=== PATIENT | female | born 1965 | race Two or more races ===

== ENCOUNTER 2023-08-24 08:30 | Outpatient (RCR) | payer OTHER, SELFPAY | END 2023-08-26 23:59 | LOC: NS 08:30 | PROVIDERS: PCP Internal Medicine; Referring Provider Internal Medicine; Visit Provider Internal Medicine | DX: Z71.3 Dietary counseling and surveillance (principal); E66.9 Obesity, unspecified | CPT/HCPCS: 97802; 97803 ==

== ENCOUNTER 2023-09-14 09:59 | Outpatient (RCR) | payer OTHER, SELFPAY | END 2023-09-26 23:59 | LOC: NS 09:59 | PROVIDERS: PCP Internal Medicine; Referring Provider Internal Medicine; Visit Provider Internal Medicine | DX: Z71.3 Dietary counseling and surveillance (principal); E66.9 Obesity, unspecified; Z68.35 Body mass index [BMI] 35.0-35.9, adult | CPT/HCPCS: 97803 ==

== ENCOUNTER → 2023-11-30 | Outpatient (CLI) | payer OTHER, SELFPAY | END | disposition home or self-care (01) | LOC: SL 09:38 | PROVIDERS: PCP Family Medicine; Referring Provider Family Medicine; Visit Provider Family Medicine | DX: R40.0 Somnolence (principal); R06.83 Snoring; G47.33 Obstructive sleep apnea (adult) (pediatric) | CPT/HCPCS: 95806 ==

== ENCOUNTER → 2024-05-19 | Outpatient (CLI) | payer OTHER, SELFPAY | END | disposition home or self-care (01) | PROVIDERS: PCP Family Medicine; Referring Provider Physician Assistant Surgical; Visit Provider Physician Assistant Surgical | DX: R35.0 Frequency of micturition (principal); R30.0 Dysuria | CPT/HCPCS: 87077; 87086; 87088; 87186 ==

== ENCOUNTER 2024-08-16 10:00 | Outpatient (RCR) | payer OTHER, SELFPAY ==
--- NOTE | 2024-07-11 12:31 | HP.PTEVAL_ITS ---
Patient's Visit Information Visit Information Visit Information: JENNIFER BOATENG is a 59 year old F referred to Physical Therapy by Dr. Aguilar Pereira DO with a diagnosis of Stain of muscle fascial R hip/ Pain in R hip. Date of Evaluation: 07/11/24 Physical Therapist: CRISTINA Gold Visit Plan Frequency: 2x /Week Duration: 2 Months Plan: 2X/ week for 8 weeks for stretching of the Subjective Subjective: Feb/Mar she was doing Beach [employer] and she was doing lunges etc and then she started to have pain in her R hip joint and it has progressed to R groin and pain will shoot down to medial knee. If she rubs the inside of her thigh it is better. She can now R side sleep but could not before. When standing she has to get her bearings. If she sits too long and goes to stand up she will have to get her balance. She has pain in the medial thigh with fast walking or if she goes FW with her R foot first she will have pain. Steps: She has to get her bearings and then she can go up the steps. She went to Dr Pereira. She is on Meloxicam and it does help her sleep and he said it was a tendinosis. She has not done a lot of stretching and stopped exercises. Pain R hip adductor pain: Pain Intensity (Out of 10): 1 Objective Objective: Gait: Walks with decrease stride length R hip flex 18.8 and L 19.2 R knee ext 26.1 and L 26.7 R knee flex 19 and L 19.7 R hip abd 11.4 and L 15.1 R hip ext 15.9 and L 18.8 heel and toe raise X 5 each direction with no issue SLB 30 sec B Tight and painful R hip flexor... able to tolerate R leg off side of table without knee flexion (knee flexion was painful) Pt was tight hip adduction and painful on the R. Tight B piriformis but no pain Bridge full ROM Balance/Special Test Scores Lower Extremity Functional Score: 40 Goals Goal 1:: I HEP Goal Time Frame: 6-8 Weeks Goal 2:: Be able to stretch R Quad/hip flexor and adductor with no pain Goal Time Frame: 6-8 Weeks Goal 3:: Be able to transition from sit to stand without having to wait a second or two before walking due to pain/discomfort Goal Time Frame: 6-8 Weeks Goal 4:: Resume working out without pain Goal Time Frame: 6-8 Weeks Goal 5:: Be able to walk with longer strides without pain Goal Time Frame: 6-8 Weeks Rehabilitation Potential Rehabilitation Potential: Good Anticipated Interventions Patient/Client Instruction: Educate patient on: Condition and Plan of Care For the Purpose of:: To decrease pain, To increase ROM, To improve nutrient delivery to tissue, To improve muscle performance and motor function, To improve ability to perform ADL's, To increase tolerance to activity/condition/position, To improve performance and independence with ADL's, To decrease level of supervision to perform tasks, To improve ability of physical actions for home/community/work/leisure, To improve gait and locomotor functions, To improve health of tissue, To decrease soft tissue restriction, To increase flexibility/ROM and To improve safety with gait Therapeutic Exercise to Include: Strength training, Postural training, Flexibilty training, Gait and locomotor training, Passive ROM, Active ROM and Dynamic Lumbar Stabilization For the Purpose of:: To decrease pain, To increase ROM, To improve nutrient delivery to tissue, To improve muscle performance and motor function, To improve ability to perform ADL's, To increase tolerance to activity/condition/position, To improve performance and independence with ADL's, To decrease level of supervision to perform tasks, To improve ability of physical actions for home/community/work/leisure, To improve gait and locomotor functions, To improve health of tissue, To decrease soft tissue restriction and To increase flexibility/ROM Functional Training to Include: Gait training For the Purpose of:: To improve gait and locomotor functions Manual Therapy Techniques to Include: Passive ROM and Soft tissue mobilization For the Purpose of:: To decrease pain, To increase ROM, To improve nutrient delivery to tissue, To improve muscle performance and motor function, To improve ability to perform ADL's, To increase tolerance to activity/condition/position, To improve performance and independence with ADL's, To decrease level of supervision to perform tasks, To improve ability of physical actions for home/community/work/leisure, To improve gait and locomotor functions, To improve health of tissue, To decrease soft tissue restriction and To increase flexibility/ROM For the Purpose of:: To decrease pain, To increase ROM and To improve nutrient delivery to tissue Text: Thank you for the opportunity to evaluate your patient. For Medicare and Medicare HMO plans, please review the plan of care and approve it. It will need to be FAXED BACK to us at [phone] for Medicare purposes. For Medicare only, by signing this I certify the plan of care. Please let me know if there are questions or concerns regarding this plan of care. Physician Signature: Date:
--- NOTE | 2024-08-16 10:44 | HP.PTREVAL ---
Re-Evaluation Intro: Dr. Aguilar Pereira, DO, It has been my pleasure to treat JENNIFER BOATENG over the last 6 visits for Strain of muscle fascial R hip/ Pain in R hip. Please see the progress note below for an update on the physical therapy plan of care! Subjective Subjective: I am feeling much better now Objective Objective/Function: Pt is now I with HEP Pt is able to transition sit to stand without pain and ambulate immediately with a normal gait pattern Pt only has good pain now with stretching Pt has made significant progress at this time, but has not returned to her normal exercise plan Plan Plan Plan: Recheck or discharge in one month after pt has returned to normal work out routine to assess tolerance and need for further PT. Balance/Gait/Functional tests Balance/Special Test Scores Lower Extremity Functional Score: 57 Goals Goals Goal 1:: I HEP Goal Time Frame: 6-8 Weeks Goal Progress: Goal Met Goal 2:: Be able to stretch R Quad/hip flexor and adductor with no pain Goal Time Frame: 6-8 Weeks Goal Progress: Goal Met Goal 3:: Be able to transition from sit to stand without having to wait a second or two before walking due to pain/discomfort Goal Time Frame: 6-8 Weeks Goal Progress: Goal Met Goal 4:: Resume working out without pain Goal Time Frame: 6-8 Weeks Goal Progress: Progressing Goal 5:: Be able to walk with longer strides without pain Goal Time Frame: 6-8 Weeks Goal Progress: Goal Met Anticipated Interventions Anticipated Interventions Patient/Client Instruction: Educate patient on: Condition and Plan of Care For the Purpose of:: To decrease pain, To increase ROM, To improve nutrient delivery to tissue, To improve muscle performance and motor function, To improve ability to perform ADL's, To increase tolerance to activity/condition/position, To improve performance and independence with ADL's, To decrease level of supervision to perform tasks, To improve ability of physical actions for home/community/work/leisure, To improve gait and locomotor functions, To improve health of tissue, To decrease soft tissue restriction, To increase flexibility/ROM and To improve safety with gait Therapeutic Exercise to Include: Strength training, Postural training, Flexibilty training, Gait and locomotor training, Passive ROM, Active ROM and Dynamic Lumbar Stabilization For the Purpose of:: To decrease pain, To increase ROM, To improve nutrient delivery to tissue, To improve muscle performance and motor function, To improve ability to perform ADL's, To increase tolerance to activity/condition/position, To improve performance and independence with ADL's, To decrease level of supervision to perform tasks, To improve ability of physical actions for home/community/work/leisure, To improve gait and locomotor functions, To improve health of tissue, To decrease soft tissue restriction and To increase flexibility/ROM Functional Training to Include: Gait training For the Purpose of:: To improve gait and locomotor functions Manual Therapy Techniques to Include: Passive ROM and Soft tissue mobilization For the Purpose of:: To decrease pain, To increase ROM, To improve nutrient delivery to tissue, To improve muscle performance and motor function, To improve ability to perform ADL's, To increase tolerance to activity/condition/position, To improve performance and independence with ADL's, To decrease level of supervision to perform tasks, To improve ability of physical actions for home/community/work/leisure, To improve gait and locomotor functions, To improve health of tissue, To decrease soft tissue restriction and To increase flexibility/ROM For the Purpose of:: To decrease pain, To increase ROM and To improve nutrient delivery to tissue Re-Evaluation Ending Re-evaluation ending: Please do not hesitate to contact me at [phone] by phone or if you have questions or concerns regarding this new plan of care! Sincerely, Valentino Flores, PT, ATC
--- NOTE | 2024-12-18 08:45 | HP.PTDCSUM ---
Discharge Summary D/C summary: It has been my pleasure to treat JENNIFER BOATENG referred by Dr. Aguilar Pereira DO, with the diagnosis of Strain of muscle fascial R hip/ Pain in R hip for a total of 6 visit(s). Discharge Date: 12/18/24 Please see the following information for a summary of their discharge status. Subjective Subjective: I am feeling much better now Pain R hip adductor pain: Pain Intensity (Out of 10): 1 Overall Improvement % Improvement: 75 Objective Objective/Function: Pt is now I with HEP Pt is able to transition sit to stand without pain and ambulate immediately with a normal gait pattern Pt only has good pain now with stretching Pt has made significant progress at this time, but has not returned to her normal exercise plan Goals Goal 1:: I HEP Goal Progress: Goal Met Goal 2:: Be able to stretch R Quad/hip flexor and adductor with no pain Goal Progress: Goal Met Goal 3:: Be able to transition from sit to stand without having to wait a second or two before walking due to pain/discomfort Goal Progress: Goal Met Goal 4:: Resume working out without pain Goal Progress: Progressing Goal 5:: Be able to walk with longer strides without pain Goal Progress: Goal Met Plan Plan: Recheck or discharge in one month after pt has returned to normal work out routine to assess tolerance and need for further PT. D/C Information Discharge Comments: DC PT d/c sentence: If there are questions or concerns regarding this patient's physical therapy, please feel free to call me at [phone]. Thank you for the referral of this patient. Sincerely, aSrah Abdullahi, MPT Balance/Gait/Functional tests Balance/Special Test Scores Lower Extremity Functional Score: 57 Improvement % Improvement: 75
--- NOTE | 2024-12-18 08:45 | HP.PTDCSUM ---
Discharge Summary D/C summary: It has been my pleasure to treat JENNIFER BOATENG referred by Dr. Aguilar Pereira DO, with the diagnosis of Strain of muscle fascial R hip/ Pain in R hip for a total of 6 visit(s). Discharge Date: 12/18/24 Please see the following information for a summary of their discharge status. Subjective Subjective: I am feeling much better now Pain R hip adductor pain: Pain Intensity (Out of 10): 1 Overall Improvement % Improvement: 75 Objective Objective/Function: Pt is now I with HEP Pt is able to transition sit to stand without pain and ambulate immediately with a normal gait pattern Pt only has good pain now with stretching Pt has made significant progress at this time, but has not returned to her normal exercise plan Goals Goal 1:: I HEP Goal Progress: Goal Met Goal 2:: Be able to stretch R Quad/hip flexor and adductor with no pain Goal Progress: Goal Met Goal 3:: Be able to transition from sit to stand without having to wait a second or two before walking due to pain/discomfort Goal Progress: Goal Met Goal 4:: Resume working out without pain Goal Progress: Progressing Goal 5:: Be able to walk with longer strides without pain Goal Progress: Goal Met Plan Plan: Recheck or discharge in one month after pt has returned to normal work out routine to assess tolerance and need for further PT. D/C Information Discharge Comments: DC PT d/c sentence: If there are questions or concerns regarding this patient's physical therapy, please feel free to call me at [phone]. Thank you for the referral of this patient. Sincerely, Sarah Abdullahi, MPT Balance/Gait/Functional tests Balance/Special Test Scores Lower Extremity Functional Score: 57 Improvement % Improvement: 75
== END 2024-08-16 19:00 | disposition home or self-care (01) ==
LOC: PT 10:00
PROVIDERS: PCP Family Medicine; Referring Provider Student in an Organized Health Care Education/Training Program; Visit Provider Student in an Organized Health Care Education/Training Program
DX: S76.011D Strain of muscle, fascia and tendon of right hip, subsequent encounter (principal); M25.551 Pain in right hip
CPT/HCPCS: 97110; 97140; 97161; 97530

== ENCOUNTER → 2024-09-13 | Outpatient (CLI) | payer OTHER, SELFPAY ==
[2024-09-17 09:08] LABS: HPV APTIMA, High Risk Negative (Negative)
== END | disposition home or self-care (01) ==
LOC: LABSPEC 16:34
PROVIDERS: PCP Family Medicine; Referring Provider Nurse Practitioner Family; Visit Provider Nurse Practitioner Family
DX: Z12.4 Encounter for screening for malignant neoplasm of cervix (principal)
CPT/HCPCS: 87624; 88175; G0145

== ENCOUNTER → 2024-09-14 | Outpatient (CLI) | payer OTHER, SELFPAY ==
[2024-09-14 14:12] LABS: Absolute Lymphocyte Count 3.03 X10^3/uL (0.83-4.51); Absolute Neutrophil Count 4.8 X10^3/uL (2.0-7.7); Basophil# 0.06 X10^3/uL; Basophil% 0.7 % (0-1); Eosinophil# 0.24 X10^3/uL; Eosinophils% 2.8 % (0-5); Hematocrit 42.6 % (37-47); Hemoglobin 14.9 g/dL (12.0-15.0); Lymphocyte # 3.03 X10^3/ul (0.83-4.51); Lymphocyte % 34.8 % (19-41); Mean Corpuscular Hgb 29.2 pg (27.0-32.0); Mean Corpuscular Volume 83.5 fL (81-99); Mean Platelet Vol. 10.8 fl (6.2-12.0); Monocyte# 0.58 X10^3/uL; Monocyte% 6.7 % (0-10); NRBC Flagged by Analyzer 0 % (0-5); Neutrophil # 4.77 X10^3/uL (2.7-7.7); Neutrophil % 54.8 % (47-70); Platelet Count 392 K/mm3 (150-450); RBC Distribution Width CV 12.8 % (11.6-14.6); RBC Distribution Width SD 39.2 fl (35.1-43.9); White Blood Count 8.7 K/mm3 (4.4-11.0)
[2024-09-14 21:19] LABS: ALB/GLOB Ratio 1.7 RATIO (0.9-2.4); AST(SGOT) 27 U/L (<=31); Alanine Aminotransfer ALT/SGPT 32 U/L (<=34); Albumin, Serum 4.7 g/dL (3.5-5.0); Alkaline Phosphatase 58 U/L (35-104); Anion Gap 14 (5-15); BUN 15 mg/dL (4-19); BUN/Creat Ratio 16.7 RATIO (10-20); Calcium,Total 9.9 mg/dL (7.6-11.0); Carbon Dioxide 24.1 mmol/L (21.0-32.0); Chloride 99 mmol/L (98-108); Cholesterol 199 mg/dL (<=200); Creatinine, Serum 0.87 mg/dL (0.70-1.20); EST Glomerular Filtration Rate 77 (>60); Estradiol 46.4 pg/mL; Follicle Stimulating Hormone 44.8 mIU/mL; Free T3 2.8 pg/mL (2.18-3.98); Globulin 2.8 g/dL (2.2-4.2); Glucose 90 mg/dL (70-99); High Density Lipoprotein 58 mg/dL; Low Density Lipoprotein Calc. 109 mg/dL; Potassium 3.5 mmol/L (3.3-5.1); Protein, Total 7.5 g/dL (5.9-8.4); Sodium Level 137 mmol/L (133-145); Total Bilirubin 0.44 mg/dL (0.00-1.30); Triglycerides 163 mg/dL; Very Low Density Lipoprotein 33 mg/dL (5-40); Vitamin B12 725 pg/mL (180-914); Vitamin D,25 Hydroxy 28.8 ng/mL (30-100); cholesterol:hdl ratio screen 3.45
== END | disposition home or self-care (01) ==
LOC: LAB 13:03
PROVIDERS: PCP Family Medicine; Referring Provider Nurse Practitioner Family; Visit Provider Nurse Practitioner Family
DX: R53.83 Other fatigue (principal); E04.1 Nontoxic single thyroid nodule; Z13.220 Encounter for screening for lipoid disorders; Z13.29 Encounter for screening for other suspected endocrine disorder
CPT/HCPCS: 36415; 80053; 80061; 82306; 82533; 82607; 82670; 83001; 84439; 84443; 84481; 85025

== ENCOUNTER → 2024-09-21 | Outpatient (CLI) | payer OTHER, SELFPAY ==
--- NOTE | 2024-09-21 14:02 | US_ITS ---
PROCEDURE: BREAST LIMITED UNILATERAL 09/21/2024 REASON FOR EXAM: RIGHT BREAST LUMP TECHNIQUE: Targeted right breast ultrasound. COMPARISON: Mammogram 09/21/2024 FINDINGS: Right breast ultrasound was targeted to the upper-outer and right axilla. There is an irregular hypoechoic mass in the right breast at 10 o'clock 9 cm from the nipple measuring 0.7 x 0.6 x 0.6 cm. This correlates with the mammographic finding. Also, there are 2 architecturally normal-appearing right axillary lymph nodes. US/Breast Limited Unilateral IMPRESSION: Irregular right breast mass at 10 o'clock 9 cm from the nipple is suspicious. Recommend tissue sampling with ultrasound-guided core needle biopsy for further evaluation. BI-RADS 5: HIGHLY SUGGESTIVE OF MALIGNANCY. Follow-up code: Immediate Follow-up Recommended with ultrasound-guided biopsy Reading Location: [id number]
--- NOTE | 2024-09-21 14:30 | BI_ITS ---
EXAM: DIAG MAMM W/CAD, BILAT 09/21/2024 RIGHT BREAST SONOGRAM. CLINICAL HISTORY: F, Age 59 y/o , BREAST LUMP TECHNIQUE: Bilateral Diagnostic digital breast tomosynthesis with 2D and 3D images. Computer aided detection. COMPARISON: Prior exam(s): Screening mammograms dated January 27, 2022. FINDINGS: TISSUE DENSITY: B: Scattered areas of fibroglandular density. Bilateral Breast Mammographic Findings: There is a new spiculated soft tissue mass lesion at mid depth in the right breast. Its shape is highly irregular and the lesion is sound attenuating. This measures about 5.6 cm x 5.7 cm by 7.3 cm. The lesion is about as wide as it is tall and is hypovascular. This is located about 9 cm from the nipple line. The left breast is unremarkable. BI/DIAG MAMM W/CAD, BILAT IMPRESSION: Right Breast: BIRADS 5, highly suggestive of malignancy.. Left Breast: BIRADS 1 NEGATIVE. OVERALL FINAL ASSESSMENT: BI-RADS 5. RECOMMENDATION: Surgical consultation. A letter with findings and recommendations will be mailed to the patient. Reading Location: [place] [address]
== END | disposition home or self-care (01) ==
LOC: OPBI 13:59
PROVIDERS: PCP Family Medicine; Referring Provider Nurse Practitioner Family; Visit Provider Nurse Practitioner Family
DX: N63.11 Unspecified lump in the right breast, upper outer quadrant (principal)
CPT/HCPCS: 76642; 77062; 77066; G0279

== ENCOUNTER → 2024-09-22 | Outpatient (CLI) | payer OTHER, SELFPAY ==
--- NOTE | 2024-09-22 08:42 | US_ITS ---
PROCEDURE: THYROID 09/22/2024 REASON FOR EXAM: History of thyroid nodules. TECHNIQUE: Thyroid ultrasound COMPARISON: None FINDINGS: Right thyroid lobe measures 4.8 cm x 1.5 cm x 1.6 cm. Left thyroid lobe measures 5 cm x 2 cm x 2.1 cm. Isthmus thickness is2.2 mm. Thyroid Size: Mild enlargement of both lobes of the thyroid slightly worse on the left side. Background Echotexture: Normal Thyroid Nodules: 5 mm x 5 mm x 6 mm hypoechoic solid nodule in the midportion of the right lobe of the thyroid. Dominant 2.4 cm x 1.6 cm x 1.8 cm complex nodule in the midportion of the left lobe of the thyroid with increased vascularity. Biopsy recommended. There is also evidence of a 9 mm x 12 mm x 8 mm hypoechoic nodule in the left lobe. Other: Incidental note is made of 2 benign-appearing right cervical lymph nodes. US/Thyroid IMPRESSION: Mild enlargement of the thyroid gland worse on the left side. Dominant complex nodule in the left lobe of the thyroid as described with incre ased vascularity. Biopsy recommended. Benign-appearing right cervical lymph nodes. Reading Location: [place] [address]
== END | disposition home or self-care (01) ==
LOC: OPUS 11:52
PROVIDERS: PCP Family Medicine; Referring Provider Nurse Practitioner Family; Visit Provider Nurse Practitioner Family
DX: E04.1 Nontoxic single thyroid nodule (principal)
CPT/HCPCS: 76536

== ENCOUNTER → 2024-09-25 | Outpatient (CLI) | payer OTHER, SELFPAY ==
--- NOTE | 2024-09-25 15:00 | BRBX_PTH ---
PATIENT: JENNIFER BOATENG LOC: [facility] U#:[id number] AGE/SX: 59/F ROOM: RE09/25/[address]: Dr. Siobhan Landrum MD : 1965 BED: DIS: 09/25/2024 SPEC #: [id number] RECD: 09/26/24 10:07 STATUS: HARPAL CHIKIS #: [id number] LEVI: 09/25/24 15:[address]: Siobhan Landrum DEPT: SURGICAL PATHOLOGY RECD BY: Paul Bunn ENTERED: 09/26/24 10:08 SP TYPE: BREAST BX OTHR DR: Dr. Estrella Peters MD Tissues: A - Right breast, NOS Procedures: Immunohistochemical Stains Surgery Specimen Level IV IHC Stain ADDITIONAL HEADER OPERATION: Right breast mass biopsy PRE-OP DIAGNOSIS: Right breast mass, BIRADS 5 TISSUE SUBMITTED: A- Right breast mass Ischemic Time: <1 minute Fixation Time: 28 hours MICROSCOPIC DIAGNOSIS A. Right Breast, mass, core biopsy: * Invasive mammary carcinoma, at least 0.7 cm * Further evaluation with IHCs is pending and will be reported in an addendum. MICROSCOPIC DESCRIPTION Slides are reviewed. These tests were developed and their performance characteristics determined by [facility]. They may not have been cleared or approved by the U.S. Food and Drug Administration. The FDA has determined that such clearance or approval is not necessary. The above immunohistochemical/dualISH markers are ordered and reviewed by the Pathologist. GROSS DESCRIPTION A. Received in formalin in a container labeled with the patient's name, date of , and R breast mass are 2 white-yellow, cylindrical core biopsies of soft tissue measuring 1.0 x 0.2 cm and 1.2 x 0.2 cm. Submitted in toto in A1. Time of collection: 09-25-2024@1500. Cold ischemic time: Less than 1 minute. Total formalin fixation time: Between 6 and 72 hours. 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 This addendum is added to incorporate an outside pathology consultation report. The case was examined at [facility] ([id number]) and the following diagnosis was rendered. A. Right breast, mass, core biopsy: HER2 SCORE: NEGATIVE HER2 SCORING REPORT: HER2 SCORE: NEGATIVE HER2/CEP17 RATIO: 1.0 HER2 COPY NUMBER/CELL: 2.7 Please see complete above mentioned consultation report in EMR
== END | disposition home or self-care (01) ==
LOC: LABSPEC 16:09
PROVIDERS: PCP Family Medicine; Referring Provider Surgery; Visit Provider Surgery
DX: N63.10 Unspecified lump in the right breast, unspecified quadrant (principal)
CPT/HCPCS: 88305; 88341; 88342

== ENCOUNTER → 2024-09-28 | Outpatient (CLI) | payer OTHER, SELFPAY ==
--- NOTE | 2024-09-28 09:12 | MRI_ITS ---
PROCEDURE: BREAST BILATERAL W/O AND W 09/28/2024 REASON FOR EXAM: ABNORMAL MAMMOGRAM TECHNIQUE: Bilateral breast MRI using a dedicated bilateral breast coil before and following intravenous contrast. Images reviewed with subtraction and DynaCAD. CONTRAST: IV FINDINGS: Amount of Fibroglandular Tissue: B: Scattered areas of fibroglandular density Background Parenchymal Enhancement: B RIGHT Breast: Suspicious small 5 mm mass showing enhancement. Location is proximally 10 o'clock, 9 cm from the nipple. LEFT Breast: No suspicious mass or non-mass enhancement. Other Findings: Four lymph nodes identified in the right axilla. These are normal size and demonstrate normal thin rim of enhancement. No suspicious axillary or internal mammary lymph nodes. Visualized portions of the thoracic and abdominal viscera are unremarkable. MRI/Breast Bilateral W/O and W IMPRESSION: Suspicious small mass thought position right breast. OVERALL BI-RADS CATEGORY: 5 Follow-up code: Immediate follow-up recommendation with ultrasound-guided biops y Reading Location: [facility]
--- NOTE | 2024-09-28 16:13 | US_ITS ---
PROCEDURE: PELVIC W/ TRANSVAGINAL REASON FOR EXAM: POST MENOPAUSAL BLEEDING TECHNIQUE: Transabdominal and transvaginal pelvic ultrasound COMPARISON: None FINDINGS: Measurements: Uterus: 9.4 cm x 5.4 cm x 4.3 cm with a volume of 112.8 mL Endometrial Thickness: 6 mm. It is hyperechoic. Thickened. Nabothian cyst is seen in the cervix. Right Ovary: 2.4 cm x 1.5 cm x 1.3 cm. Left Ovary: Not visualized. TRANSABDOMINAL: Uterus: Findings suggestive of possible adenomyosis. Endometrium: Endometrial thickening. Right ovary: Normal size and echotexture. Left ovary: Not visualized. Transvaginal sonography was performed to better visualize the endometrium. TRANSVAGINAL: Uterus: Possible adenomyosis. Endometrium: Endometrium measures 6 mm. This is thickened. Right ovary: Normal size and echotexture. Left ovary: Not visualized. Other adnexal findings: None. Cul-de-sac: No free intraperitoneal fluid identified. Tenderness: US/Pelvic w/ Transvaginal IMPRESSION: Endometrial thickening. Findings suggestive of possible adenomyosis of the uterus. Reading Location: [place] [address]
== END | disposition home or self-care (01) ==
LOC: MRI 09:09
PROVIDERS: PCP Family Medicine; Referring Provider Surgery; Visit Provider Surgery
DX: N95.0 Postmenopausal bleeding (principal)
CPT/HCPCS: 76830; 76856; 77049; A9575; A4216; C8908

== ENCOUNTER 2024-09-29 05:36 | Day surgery (SDC) | payer OTHER, SELFPAY ==
[2024-09-29] VITALS (8 sets, daily range): BP systolic 102–125; BP diastolic 67–80; PULSE 63–77; RESP 16–18; TEMP 36.1–36.4; O2SAT 93–98; BMI 34.4
--- NOTE | 2024-09-29 06:18 | PCM.PRE.AN2 ---
ASA Classification* ASA Classification ASA Classification: 2 Assessment & Plan Anesthesia* Anesthesia Assessment Anesthesia Assessment: Discussed sedation and/or anesthesia options, risks, benefits, and alternatives with patient/parents/legal guardian/POA. Questions invited. The patient/parents/legal guardian/POA seems to understand and agrees to proceed with anesthesia plan. Reviewed the physical assessment, medical history, allergy history and patient home medications list prior to surgery/procedure/anesthetic and documented any changes. Performed airway and anesthesia risk assessments. Anesthesia Type Anesthesia Type: MAC History Source History Obtained from:: Patient and Chart Anesthesia Focused Assessment* Temperature: 97.0 F Pulse Rate: 63 Blood Pressure: 125/80 Respiratory Rate: 18 Pulse Ox: 98 Oxygen Delivery Method: Room Air Airway Assessment Mouth opens: >3 cm Mallampati Score: IV Teeth Condition: Caps/Crowns (Patient has a crown right upper molar. It is tight.) Neck Range of motion (ROM): Full ROM Focused Labs Anesthesia Preop lab: CBC WBC 8.7 K/mm3 (4.4-11.0) 09/14/24 13:09/14/24 RBC 5.10 M/mm3 (4.2-5.4) 09/14/24 13:09/14/24 Hgb 14.9 g/dL (12.0-15.0) 09/14/24 13:09/14/24 Hct 42.6 % (37-47) 09/14/24 13:09/14/24 Plt Count 392 K/mm3 (150-450) 09/14/24 13:09/14/24 CHEMISTRY Potassium 3.5 mmol/L (3.3-5.1) 09/14/24 13:09/14/24 Sodium 137 mmol/L (133-145) 09/14/24 13:09/14/24 BUN 15 mg/dL (4-19) 09/14/24 13:09/14/24 Creatinine 0.87 mg/dL (0.70-1.20) 09/14/24 13:09/14/24 Glucose 90 mg/dL (70-99) 09/14/24 13:09/14/24 TSH 1.270 uIU/mL (0.300-4.200) 09/14/24 13:27 09/14/24 COAG Pre-Assessment Diagnosis/Proposed Procedure Planned Operative Procedure(s): EGD Anesthesia History 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 When Was Last Pacemaker Check QUESTION #4 FULL TEXT: You/Your Family Experience fever (hyperthermia) with Anesthesia Last Oral Intake Last Oral intake: Last Oral Intake NPO since 17:30 09/29/24 05:54 Meds taken in AM with sips of water? Meds patient instructed to take am of surgery PONV PONV - business applications analyst: PONV - business applications analyst Female Yes 09/26/24 09:39 HX of Motion Sickness Yes 09/26/24 09:39 HX of N/V After Surgery Yes 09/26/24 09:39 Non-Smoker Yes 09/26/24 09:39 Duration of Surgery greater No 09/26/24 09:39 than 60 minutes Number of Risk Factors 4 09/26/24 09:39 PONV Score Severe Risk 09/26/24 09:39 Height & Weight Height & Weight: Anesthesia: Height & Weight Height 5 ft 09/29/24 05:54 Weight: 80 kg 09/29/24 05:54 Body Mass Index (BMI) 34.4 09/29/24 05:54 Respiratory Assessment Respiratory Assessment - business applications analyst: Respiratory Tract Infection Hx - business applications analyst Hx Respiratory Tract Infection No 09/26/24 09:39 STOP Sleep Apnea STOP Sleep Apnea - business applications analyst: STOP Sleep Apnea - business applications analyst Hx Hypertension Yes: CONTROLLED WITH MED 09/26/24 09:39 Hx Sleep Apnea No 09/26/24 09:39 CPAP BIPAP Do you snore loudly (louder No 09/26/24 09:39 than talking or can be heard Do you often feel tired/ No 09/26/24 09:39 fatigued/ sleepy during daytime? Has anyone observed you stop No 09/26/24 09:39 breathing during sleep? STOP Results Negative 09/26/24 09:39 QUESTION #5 FULL TEXT : Do you snore loudly (louder than talking or can be heard through closed doors)? Tobacco Use History Tobacco Use History - business applications analyst: Tobacco Use History - business applications analyst Tobacco Use Smoking Status Former smoker 09/26/24 09:39 Hx Tobacco Use No 09/26/24 09:39 Years Smoking Packs Smoked per Day Smoking Cessation Date was Yes - quit smoking within 15 09/26/24 09:39 within the last 15 years years Hx Smoking Cessation Date Hx Smoking Cessation No 09/26/24 09:39 Counseling Hematologic Medial History Hematologic Hx - business applications analyst: Hematologic Medical Hx - clinical documentation spec Hx of Blood Transfusion No 09/26/24 09:39 Hx of Transfusion in last 3 No 09/26/24 09:39 Months Date of Last Transfusion (if within last 3 months) Ever experience any problems No 09/26/24 09:39 with transfusion(s)? Specify any problems Hx of Preganancy in last 3 No 09/26/24 09:39 Months Nurse Filling Out Transfusion DSCHRIBER 09/26/24 09:39 & Questions: Date: 09/26/24 09/26/24 09:39 Time: 09:42 09/26/24 09:39 Patient unable to answer at this time (ie. confused, unrespo /Reproduction History /Reproductive History - business applications analyst: /Reproductive Hx- business applications analyst Hx Now No 09/26/24 09:39 Gestational Age (in weeks): EDC: Hx Hx Para Hx Section SAB No 09/26/24 09:39 PFSH Medical History Post-menopausal Thyroid disease Cancer Alcohol use Arthritis Frequent headaches Shortness of breath on exertion Former smoker Abnormal mammogram Esophageal abrasion Stomach ulcer Polycystic ovaries Hormone deficiency Marks esophagus HTN (hypertension) Home Medications ?Medication ?Instructions ?Recorded ?Last Taken ?Type lactobacillus combination no.9 4 4,000 mmu cells PO QDAY 05/19/24 09/28/24 History billion cell capsule (Adult 50 Plus Probiotic) multivitamin 1 tab PO QAM 07/27/24 09/28/24 History hydrochlorothiazide 25 mg tablet 25 mg PO QDAY 09/25/24 09/28/24 History pantoprazole 40 mg tablet,delayed 40 mg PO DAILY 09/26/24 09/28/24 History release Allergy/AdvReac Type Severity Reaction Status Date / Time codeine Allergy Mild Other Verified 09/29/24 05:53 Sulfa (Sulfonamide Allergy Mild Nausea/Vom/ Verified 09/29/24 05:53 Antibiotics) Diarrhea latex AdvReac Mild Itching Verified 09/29/24 05:53 Family History Grandmother Arthritis Parkinsons disease CVA (cerebral vascular accident) Mother Hypertension Grandfather Parkinsons disease Surgical History Hx of LASIK Hx of colonoscopy History of esophagogastroduodenoscopy (EGD) S/P section S/P appendectomy History of repair of hiatal hernia Social History household members: spouse housing: house current occupational status: employed 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
--- NOTE | 2024-09-29 06:30 | EGD_PTH ---
PATIENT: JENNIFER BOATENG LOC: EN U#:[id number] AGE/SX: 59/F ROOM: RE09/29/[address]: Dr. Natanael Quiros DO : 1965 BED: DIS: 09/29/2024 SPEC #: [id number] RECD: 09/29/24 12:59 STATUS: HARPAL RENorma #: [id number] LEVI: 09/29/24 06:[address]: Natanael Quiros DEPT: SURGICAL PATHOLOGY RECD BY: Paul Bunn ENTERED: 09/29/24 13:00 SP TYPE: EGD BIOPSY SHAREE DR: Dr. Estrella Peters MD Tissues: A - Esophagus, NOS Procedures: Surgery Specimen Level IV HEADER OPERATION: EGD biopsy PRE-OP DIAGNOSIS: Bowser esophagus TISSUE SUBMITTED: A- Distal esophagus biopsy MICROSCOPIC DIAGNOSIS A. Distal esophagus, Bowser, biopsy: - Bowser mucosa negative for dysplasia. MICROSCOPIC DESCRIPTION Slides are reviewed. GROSS DESCRIPTION A. Received in formalin in a container labeled with the patient's name, date of , and distal esophagus biopsy are multiple maldonado-pink fragments of mucosal tissue measuring 1.5 x 0.7 x 0.3 cm in aggregate. Submitted in toto in A1. [facility] 09-29-2024 CPT:29910 ADDENDUM ADDENDUM ADDENDUM ADDENDUM ADDENDUM ADDENDUM ADDENDUM ADDENDUM ADDENDUM ADDENDUM 12/04/2024 08:50 ADDENDUM 12/04/2024 08:50 ADDENDUM 12/04/2024 08:50 ADDENDUM 12/04/2024 08:50 ADDENDUM 12/04/2024 08:50 Zane Prep [facility] - BOWSER'S ESOPHAGUS REPORT RISK CLASS: LOW RISK SCORE: 4.2 5-YEAR PROBABILITY OF PROGRESSION: 3% Please see complete report in e-chart or EMR
--- NOTE | 2024-09-29 06:48 | HP.PCM_ITS ---
HPI - General General Date of Admission: 09/29/24 Date of Service: 09/29/24 Chief Complaint: lassiter's esophagus HPI Narrative JENNIFER BOATENG, is a 59 F who presents with the Chief Complaint: Lassiter's, GERD ---[employer]SPORTATION [employer]PARTMENT [employer] [facility] COLON 2018 ([place]) negative exam - repeat 10 years EGD 03/20/2022 A. DUODENUM, BIOPSY: --SMALL BOWEL MUCOSA, NO SIGNIFICANT PATHOLOGIC FINDINGS B. ANTRUM, BIOPSY: -- MILD CHRONIC GASTRITIS Note: Immunostain for Helicobacter pylori is negative. C. DISTAL ESOPHAGUS, BIOPSY: -- SQUAMOCOLUMNAR JUNCTIONAL MUCOSA WITH INTESTINAL METAPLASIA, CONSISTENT WITH LASSITER'S ESOPHAGUS -- NEGATIVE FOR DYSPLASIA - Normal nasopharynx. - Esophageal mucosal changes secondary to established short-segment Lassiter's disease, classified as Lassiter's stage C1-M2 per [place] criteria. Biopsied. - Erythematous mucosa in the prepyloric region of the stomach. Biopsied. - Normal examined duodenum. Biopsied. EGD 10/21/2016 GE JUNCTION, BIOPSY - SQUAMOCOLUMNAR MUCOSA WITH FOCAL INTESTINAL METAPLASIA COMPATIBLE WITH LASSITER ESOPHAGUS. NEGATIVE FOR DYSPLASIA AND MALIGNANCY (SEE NOTE). NOTE: An Alcian blue/PAS stain highlights intestinal metaplasia. EGD 04/15/2016 The GE junction was inspected with narrow band imaging, no visual evidence of Lassiter's was seen. Focal biopsies were done at the GE junction and multilevel and sent as specimen to make sure that there was no microscopic Lassiter's esophagus. GASTROESOPHAGEAL JUNCTION, BIOPSIES - SPECIALIZED INTESTINAL METAPLASIA WITH GOBLET CELLS AND ACID MUCIN PRODUCTION. NEGATIVE FOR DYSPLASIA OR CARCINOMA. AB/PAS STAIN REVIEWED. MILD CHRONIC ESOPHAGITIS. EGD 11/06/2015 GASTROESOPHAGEAL JUNCTION, BIOPSY - CHRONIC INFLAMMATION WITH SPECIALIZED INTESTINAL (GOBLET CELL) METAPLASIA CONSISTENT WITH LASSITER'S ESOPHAGUS. NEGATIVE FOR DYSPLASIA. ALCIAN BLUE/PAS STAIN CONFIRMS THE PRESENCE OF INTESTINAL METAPLASIA. EGD 05/13/2015 1. Laparoscopic repair of hiatal hernia with mesh. 2. Laparoscopic Cisco fundoplication. 3. Esophagogastroduodenoscopy. EGD 03/06/2015 - APC The previously seen Lassiter's segment was almost completely disappeared except for a very small segment at 3 o'clock position through the endoscope. A TTS device was then introduced and then the segment was ablated with sequential ablations. The resultant quite long was scraped off with the tip of the TTS device and the area was re-ablated. Hemostasis was confirmed. Scope was withdrawn. The patient tolerated the procedure well. EGD 10/26/2014 - APC Scope was withdrawn into the distal esophagus and narrow band imaging was used to identify a segment of Lassiter's esophagus at about 4 o'clock and also 7 o'clock. Please see pictures. These both segments were then ablated with TTS device with sequential ablations through the TTS paddle introduced through the endoscope. The coagulum was then scraped off with the tip of the scope and the areas were re-ablated. EGD 08/27/2014 Scope was then withdrawn at the GE junction, which looked like Lassiter's esophagus. Please see pictures, this was looked at by narrow band imaging as well. Biopsies were done to prove microscopic Lassiter's esophagus. EGD 08/22/2014 BIOPSY OF GASTROESOPHAGEAL JUNCTION - SPECIALIZED INTESTINAL METAPLASIA CONSISTENT WITH LASSITER'S ESOPHAGUS. BACKGROUND OF CHRONICALLY INFLAMED SQUAMOUS AND GASTRIC TYPE MUCOSA. - GERD is getting worse - ran out of Omeprazole and has to take 8 Tums to reduce symptoms after eating spaghetti - reports resuming PPI and symptoms resolved - denies any dysphagia - Lassiter's 2012 - h/o esophageal ablations by Dr. Cervantes at [facility] - last ablation 04/2025 - at least h/o 4 ablations in the past - EGD - HH repair - Maternal Uncle with esoph. CA - denies any family h/o colon CA - denies any change in bowel habits - denies any bleeding - denies any weight loss ON LICENSE OF [facility] Medical History Post-menopausal Thyroid disease Cancer Alcohol use Arthritis Frequent headaches Shortness of breath on exertion Former smoker Abnormal mammogram Esophageal abrasion Stomach ulcer Polycystic ovaries Hormone deficiency Lassiter esophagus HTN (hypertension) Home Medications ?Medication ?Instructions ?Recorded ?Last Taken ?Type lactobacillus combination no.9 4 4,000 mmu cells PO QD AY 05/19/24 09/28/24 History billion cell capsule (Adult 50 Plus Probiotic) multivitamin 1 tab PO QAM 07/27/24 History hydrochlorothiazide 25 mg tablet 25 mg PO QDAY 09/25/ 5 09/28/24 History pantoprazole 40 mg tablet,delayed 40 mg PO DAILY 09/2609/28/24 History release Allergy/AdvReac Type Severity Reaction Status Date / Time codeine Allergy Mild Other Verified 09/29/24 05:53 Sulfa (Sulfonamide Allergy Mild Nausea/Vom/ Verified 09/29/24 05:53 Antibiotics) Diarrhea latex AdvReac Mild Itching Verified 09/29/24 05:53 Family History Grandmother Arthritis Parkinsons disease CVA (cerebral vascular accident) Mother Hypertension Grandfather Parkinsons disease Surgical History Hx of LASIK Hx of colonoscopy History of esophagogastroduodenoscopy (EGD) S/P section S/P appendectomy History of repair of hiatal hernia Social History household members: spouse housing: house current occupational status: employed current occupation: [employer] Smoking Status: Former smoker alcohol intake: current substance use type: does not use additional social history: - Bg RODRÍGUEZ Constitutional Constitutional: Denies fatigue, fever(s), poor appetite, weight gain or weight loss Gastrointestinal Gastrointestinal: Denies belching, bloating, change in bowel habits, change in stool character, chewing difficulty, coffee ground emesis, constipation, cramping, diarrhea, dyspepsia, dysphagia, early satiety, excessive flatus, fecal incontinence, heartburn, hematemesis, hematochezia, hemorrhoids, loose stools, melena, nausea, odynophagia, rectal bleeding, tenesmus, vomiting or weight changes Vital Signs Vital Signs Vital Signs: 09/29/24 05:54 09/29/24 05:54 09/29/24 06:24 Temperature 97.0 F L 97.0 F L Temperature Source Temporal Pulse Rate 63 63 Respiratory Rate 18 18 Respiratory Pattern Normal Blood Pressure 125/80 H 125/80 H Blood Pressure Mean 95 Blood Pressure Source Monitor Blood Pressure Position Semi-Fowlers Blood Pressure Location Left Arm Pulse Ox 98 98 Oxygen Delivery Method Room Air Room Air Weight Weight: 176 lb 5.917 oz Body Mass Index (BMI) 34.4 Physical Exam Const alert, oriented x3, no apparent distress and healthy appearing General Appearance: cooperative GI normal to inspection, nondistended, normoactive bowel sounds, soft to palpation, non-tender and non-distended Percussion: normal to percussion Rectal Exam: deferred Assessment & Plan Assessment/Plan (1) Lassiter esophagus: QUALIFIERS: Lassiter's esophagus type: with dysplasia of unspecified degree Qualified Code(s): K22.719 - Lassiter's esophagus with dysplasia, unspecified PLAN: Assessment and Plan Assessment and Plan (1) Lassiter esophagus: Status: Acute Qualifiers: Lassiter's esophagus type: with dysplasia of unspecified degree Qualified Code(s): K22.719 - Lassiter's esophagus with dysplasia, unspecified Comment: C1M2 - H/O dysplasia - APC 2014 Plan 59y/o female presents for initial consultation with a personal history of Lassiter's with dysplasia. EGD was last performed February 2022 and biopsies were consistent with Lassiter's (C1M2) negative for dysplasia. GERD Symptoms are well controlled on PPI daily. She denies any N/V, dysphagia or weight loss. Family history is significant for maternal Uncle with esophageal CA. I have scheduled her for an EGD, if biopsies are revealing for Lassiter's, will send [employer]Cypher. Patient Instructions: Follow-up in office post procedure
--- NOTE | 2024-09-29 07:08 | POSTOPAN2_ITS ---
Anesthesia Postop Eval I Sum Postop Eval Completion status Anesthesia document: Postop Eval 1 completed: Yes Anesthesia Postop Eval I Summary Anesthesia Postop Eval I Summary: Anesthesia Postop Eval I: Assessment Summary Airway patent Yes 09/29/24 07:08 RN SOCIAL SERVICES.YANET Spontaneous unlabored Yes 09/29/24 07:08 RN SOCIAL SERVICES.YANET respirations Mental status Awake,Calm 09/29/24 07:08 RN SOCIAL SERVICES.YANET nausea No 09/29/24 07:08 RN SOCIAL SERVICES.YANET Vomiting No 09/29/24 07:08 RN SOCIAL SERVICES.YANET Anesthesia Postop Eval I: Fluid Summary Crystalloid volume administer 30 09/29/24 07:08 RN SOCIAL SERVICES.YANET (ml) Colloids volume administered ( ml) Blood Product volume administered (ml) Total IV fluid infused 30 09/29/24 07:08 RN SOCIAL SERVICES.YANET Anesthesia Postop Eval I: Summary Notes Anesthesia Complication No 09/29/24 07:08 RN SOCIAL SERVICES.YANET Anesthesia Complication Comment: Post-operative progress note Anesthesia: Postop Eval II Evaluation Mental status: Awake and Calm Pain Level: 0 nausea: No Vomiting: No Complications Anesthesia Complication: No
--- NOTE | 2024-09-29 07:08 | PCM.POST.ANE ---
Anesthesia: Postop Eval I Current Vital Signs Temperature: 97 F Pulse Rate: 77 Blood Pressure: 102/67 Respiratory Rate: 16 Pulse Ox: 97 Oxygen Delivery Method: Room Air Assessment Airway patent: Yes Spontaneous unlabored respirations: Yes Mental status: Awake and Calm nausea: No Vomiting: No Anesthesia Complication: No Fluid Hydration Crystalloid volume administer (ml): 30 Total IV fluid infused: 30 Progress Note Anesthesia document: Postop Eval 1 completed: Yes
--- NOTE | 2024-09-29 07:08 | PCM.POSTANE2 ---
Anesthesia Postop Eval I Sum Postop Eval Completion status Anesthesia document: Postop Eval 1 completed: Yes Anesthesia Postop Eval I Summary Anesthesia Postop Eval I Summary: Anesthesia Postop Eval I: Assessment Summary Airway patent Yes 09/29/24 07:08 TELEVISION AUDIO ENGINEER.YANET Spontaneous unlabored Yes 09/29/24 07:08 TELEVISION AUDIO ENGINEER.YANET respirations Mental status Awake,Calm 09/29/24 07:08 TELEVISION AUDIO ENGINEER.YANET nausea No 09/29/24 07:08 TELEVISION AUDIO ENGINEER.YANET Vomiting No 09/29/24 07:08 TELEVISION AUDIO ENGINEER.YANET Anesthesia Postop Eval I: Fluid Summary Crystalloid volume administer 30 09/29/24 07:08 TELEVISION AUDIO ENGINEER.YANET (ml) Colloids volume administered ( ml) Blood Product volume administered (ml) Total IV fluid infused 30 09/29/24 07:08 TELEVISION AUDIO ENGINEER.YANET Anesthesia Postop Eval I: Summary Notes Anesthesia Complication No 09/29/24 07:08 TELEVISION AUDIO ENGINEER.YANET Anesthesia Complication Comment: Post-operative progress note Anesthesia: Postop Eval II Evaluation Mental status: Awake and Calm Pain Level: 0 nausea: No Vomiting: No Complications Anesthesia Complication: No
--- NOTE | 2024-09-29 07:20 | OP.CCLET_ITS ---
09/29/2024 Estrella Peters Re : Upper GI endoscopy procedure for Jazmin Alexandre Dear Rylandeishmael This procedure was performed on Sunday, September 29, 2024. My impressions and recommendations are as follows: Impressions : - Esophageal mucosal changes classified as Marks's stage C1-M2 per [place] criteria. Biopsied. - Hiatal hernia. - No gross lesions in the first portion of the duodenum. Recommendations : - Discharge patient to home. - Resume previous diet. - Continue present medications. - Await pathology results. - Repeat upper endoscopy for surveillance. My findings are described in the full procedure note, which is enclosed. If I can be of further assistance, please feel free to contact me at . Sincerely, Natanael Quiros, 09/29/2024 7:19:01 AM This report has been signed electronically.
--- NOTE | 2024-09-29 07:20 | OP.EGD_ITS ---
Patient Name: Jazmin Alexandre Procedure Date: 09/29/2024 6:24 AM Date of : 1965 Age: 59 Procedure: Upper GI endoscopy Indications: Marks's esophagus with low grade dysplasia, Follow-up of previous radiofrequency ablation treatment of Marks's esophagus Providers: Natanael Quiros DO Referring MD: Estrella Peters Medicines: Monitored Anesthesia Care Patient Profile: This is a 59 year old female. Refer to note in patient chart for documentation of history and physical. Patient has symptoms of chronic heartburn. Complications: No immediate complications. Procedure: Pre-Anesthesia Assessment: - Prior to the procedure, a History and Physical was performed, and patient medications and allergies were reviewed. The patient is competent. The risks and benefits of the procedure and the sedation options and risks were discussed with the patient. All questions were answered and informed consent was obtained. Patient identification and proposed procedure were verified by the physician in the pre-procedure area. Mental Status Examination: alert and oriented. Airway Examination: normal oropharyngeal airway and neck mobility. Respiratory Examination: clear to auscultation. CV Examination: normal. Prophylactic Antibiotics: The patient does not require prophylactic antibiotics. Prior Anticoagulants: The patient has taken no anticoagulant or antiplatelet agents except for NSAID medication. ASA Grade Assessment: II - A patient with mild systemic disease. After reviewing the risks and benefits, the patient was deemed in satisfactory condition to undergo the procedure. The anesthesia plan was to use monitored anesthesia care (MAC). Immediately prior to administration of medications, the patient was re-assessed for adequacy to receive sedatives. The heart rate, respiratory rate, oxygen saturations, blood pressure, adequacy of pulmonary ventilation, and response to care were monitored throughout the procedure. The physical status of the patient was re-assessed after the procedure. After obtaining informed consent, the endoscope was passed under direct vision. Throughout the procedure, the patient's blood pressure, pulse, and oxygen saturations were monitored continuously. The Endoscope was introduced through the mouth, and advanced to the second part of duodenum. The upper GI endoscopy was accomplished without difficulty. The patient tolerated the procedure well. Scope In: 6:56:43 AM Scope Out: 7:03:48 AM Total Procedure Duration Time 0 hours 7 minutes 5 seconds Findings: There were esophageal mucosal changes classified as Marks's stage C1-M2 per [place] criteria present in the lower third of the esophagus. The maximum longitudinal extent of these mucosal changes was 2 cm in length. Mucosa was biopsied with a cold forceps for histology in 4 quadrants at intervals of 1 cm in the lower third of the esophagus. One specimen bottle was sent to pathology. Verification of patient identification for the specimen was done. Estimated blood loss was minimal. A hiatal hernia was present. The exam of the stomach was otherwise normal. No gross lesions were noted in the first portion of the duodenum. Impression: - Esophageal mucosal changes classified as Marks's stage C1-M2 per [place] criteria. Biopsied. - Hiatal hernia. - No gross lesions in the first portion of the duodenum. Recommendation: - Discharge patient to home. - Resume previous diet. - Continue present medications. - Await pathology results. - Repeat upper endoscopy for surveillance. Procedure Code(s): --- Professional --- 39134, Esophagogastroduodenoscopy, flexible, transoral; with biopsy, single or multiple CPT copyright 2021 [employer]. All rights reserved. The codes documented in this report are preliminary and upon aerodynamic consultant review may be revised to meet current compliance requirements. Natanael Quiros DO 09/29/2024 7:19:01 AM This report has been signed electronically. Number of Addenda: 0 Note Initiated On: 09/29/2024 6:24 AM
== END 2024-09-29 07:54 | disposition home or self-care (01) ==
LOC: EN 05:36 → AC 05:37
PROVIDERS: PCP Family Medicine; Referring Provider Family Medicine; Visit Provider Internal Medicine Gastroenterology
PROC: 0DJ08ZZ Inspection of Upper Intestinal Tract, Via Natural or Artificial Opening Endoscopic (ICD-10-PCS; CPT 43235; principal; 2024-09-29 06:25)
DX: K22.70 Barrett's esophagus without dysplasia (principal); Z87.891 Personal history of nicotine dependence; I10 Essential (primary) hypertension; K21.00 Gastro-esophageal reflux disease with esophagitis, without bleeding; Z79.899 Other long term (current) drug therapy; Z90.49 Acquired absence of other specified parts of digestive tract; K44.9 Diaphragmatic hernia without obstruction or gangrene
CPT/HCPCS: 43239; 88305; A4216

== ENCOUNTER → 2024-10-03 | Outpatient (CLI) | payer OTHER, SELFPAY ==
--- NOTE | 2024-10-03 09:10 | EMB_PTH ---
PATIENT: JENNIFER BOATENG LOC: ERLINDA U#:[id number] AGE/SX: 59/F ROOM: RE10/03/[address]: OLIVIA Daniel : 1965 BED: DIS: 10/03/2024 SPEC #: [id number] RECD: 10/03/24 13:19 STATUS: HAPRAL CHIKIS #: [id number] LEVI: 10/03/24 09:[address]: Amber Kay NP DEPT: SURGICAL PATHOLOGY RECD BY: Paul Bunn ENTERED: 10/03/24 13:19 SP TYPE: ENDOM BX/C SHAREE DR: Dr. Estrella Peters MD Tissues: A - Endometrium, NOS Procedures: Surgery Specimen Level IV HEADER OPERATION: Endometrial biopsy PRE-OP DIAGNOSIS: Post menopausal bleeding TISSUE SUBMITTED: A- Endometrial lining MICROSCOPIC DIAGNOSIS A. Uterus, endometrial lining, biopsy: * Strips of benign glandular epithelium consistent with endometrial origin - see note. Note: Clinical correlation is necessary to assess the adequacy of the sampling. MICROSCOPIC DESCRIPTION Slides are reviewed. GROSS DESCRIPTION A. Received in formalin in a container labeled with the patient's name, date of , and with the accompanying paperwork indicating, endometrial lining is a scant amount of wispy soft tissue submitted entirely for cell block preparation in A1. [facility] 10-03-2024 CPT:95174
== END | disposition home or self-care (01) ==
LOC: BWCLAB 11:15 → LABSPEC 11:19
PROVIDERS: PCP Family Medicine; Referring Provider Nurse Practitioner Women's Health; Visit Provider Nurse Practitioner Women's Health
DX: N95.0 Postmenopausal bleeding (principal)
CPT/HCPCS: 88305

== ENCOUNTER → 2024-10-13 | Outpatient (CLI) | payer OTHER, SELFPAY ==
--- NOTE | 2024-10-13 08:00 | FLU_PTH ---
PATIENT: JENNIFER BOATENG LOC: ERLINDA U#:[id number] AGE/SX: 59/F ROOM: RE10/13/[address]: Dr. Roni Jones MD : 1965 BED: DIS: 10/13/2024 SPEC #: [id number] RECD: 10/13/24 11:10 STATUS: HARPAL CHIKIS #: [id number] LEVI: 10/13/24 08:[address]: Roni Jones DEPT: CYTOLOGY RECD BY: Paul Bunn ENTERED: 10/13/24 11:10 SP TYPE: Fluid OTHR DR: Dr. Estrella Peters MD Tissues: A - Thyroid gland, NOS Procedures: Special Stain Group II Surgery Specimen Level IV Cytospin Fluid HEADER OPERATION: Fine needle aspiration of left thyroid nodule PRE-OP DIAGNOSIS: Left thyroid nodule TISSUE SUBMITTED: A- Left mid thyroid nodule fluid for cytology DIAGNOSIS CYTOLOGY A. Left mid thyroid nodule, FNA: * No malignant cells are identified * Benign follicular cells (benign follicular nodule) Preliminary studies/adequacy: Few follicular cells and macrophages By Dr. Singleton 10/13/24 CYTOLOGY STUDY Slides are reviewed. CYTOLOGY GROSS A. Received is 330 ml of cytolyt with particles and 4 smears labeled with the patient's name and and designated per the requisition as Left mid thyroid nodule. Submitted for cytology. Mr 10/13/2024 CPT: 88294
== END | disposition home or self-care (01) ==
PROVIDERS: PCP Family Medicine; Referring Provider Surgery; Visit Provider Surgery
DX: E04.1 Nontoxic single thyroid nodule (principal)
CPT/HCPCS: 88108; 88305; 88313

== ENCOUNTER 2024-10-20 06:31 | Day surgery (SDC) | payer OTHER, SELFPAY ==
[2024-10-20] VITALS (11 sets, daily range): BP systolic 126–146; BP diastolic 75–94; PULSE 74–79; RESP 14–18; TEMP 36.1–37.2; O2SAT 91–95; BMI 34.9
--- NOTE | 2024-10-20 06:58 | PCM.HP.BLA ---
History and Physical Date of Admission: 10/20/24 Date of Service: 10/02/24 MR#: [id number] Acct: [id number] Name: JENNIFER BOATENG Rep #: [id number] : 1965 Provider: Dr. Siobhan Landrum MD Age/Sex: 59/F Location: [facility] Status: Signed Intake Vital Signs 09/25/2513:46 10/02/2508:03 Height 5 ft 5 ft BP 147/88 H Blood Pressure Location Rt brachial Position Sitting Respiration 17 Pulse 86 Pulse Source Monitor Pulse Oximetry (%) 97 Oxygen Delivery Method room air Intake Visit Reasons: DISCUSS BREAST SURGERY Chief Complaint: discuss breast surgery Is patient in pain?: No Allergies codeine Allergy (Mild, Verified 10/03/24 08:42) OtherSulfa (Sulfonamide Antibiotics) Allergy (Mild, Verified 10/03/24 08:42) Nausea/Vom/Diarrhealatex Adverse Reaction (Mild, Verified 10/03/24 08:42) Itching Medications ?Medication ?Instructions ?Recorded ?Confirmed ?Type lactobacillus combination no.9 4 4,000 mmu cells PO QDAY 05/19/24 10/03/24 History billion cell capsule (Adult 50 Plus Probiotic) multivitamin 1 tab PO QAM 07/27/24 10/03/24 History hydrochlorothiazide 25 mg tablet 25 mg PO QDAY 09/25/24 10/03/24 History pantoprazole 40 mg tablet,delayed 40 mg PO DAILY 09/26/24 10/03/24 History release omeprazole 20 mg capsule,delayed 20 mg PO QDAY 10/03/24 10/03/24 History release PFSH Medical History (Updated 10/03/24 @ 08:[address] Siobhan Landrum MD) Breast cancer Post-menopausal Thyroid disease Cancer Alcohol use Arthritis Frequent headaches Shortness of breath on exertion Former smoker Esophageal abrasion Stomach ulcer Polycystic ovaries Hormone deficiency Marks esophagus HTN (hypertension) Surgical History Hx of LASIK Hx of colonoscopy History of esophagogastroduodenoscopy (EGD) S/P section S/P appendectomy History of repair of hiatal hernia Family History Grandmother Arthritis Parkinsons disease CVA (cerebral vascular accident)Mother HypertensionGrandfather Parkinsons disease Social History household members: spouse housing: house current occupational status: employed current occupation: [employer] Smoking Status: Former smoker alcohol intake: current substance use type: does not use additional social history: - Bg HPI HPI HPI: 59-year-old female presents to discuss breast pathology and treatment for right breast cancer. 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 Patient's MRI did only show single area that was the known mass. Lymph nodes were called normal. ROS General General: Yes fatigue and breast cancer; No weight change, appetite, colon cancer or weakness HEENT HEENT: No difficulty swallowing, eye injury, eye surgery, swollen glands or hoarseness Endo Endocrine: No thyroid disease, diabetes mellitus, thyroid cancer, Hair loss, heat intolerance or cold intolerance Skin Skin: No rash or changing moles Breast Breast: Yes right breast lump, abnormal mammogram and abnormal US; No left breast lump, nipple discharge, breast pain or breast enlargement Musc Musculoskeletal: No back problems, arthritis, rheumatoid arthritis, gout or joint pain Cardio Cardiovascular: No murmur, pacemaker, heart disease, atrial fibrillation, high blood pressure, heart attack, heart stent, palpitations, shortness of breath with exertion or chest pain Psych Psychiatric: No depression, anxiety or hearing voices Resp Respiratory: No shortness of breath, No sleep apnea, No cough, No COPD, No asthma, No emphysema and No wheezing Gastro Gastrointestinal: No abdominal pain, No nausea or vomiting, No diarrhea, No constipation, No blood in stool, No acid reflux, No hemorrhoids, No ulcers, No gallbladder problem and No black,tarry stools Leonid Hematologic: No blood thinners, No blood disorders, No bleeding, No anemia and No blood clots Neuro Neurologic: No numbness and No weakness Exam Const General: cooperative, healthy appearing and no acute distress [facility] Head: normal to inspection Chest Other: Right breast previous biopsy site healing well resolving ecchymosis. Resp Effort & Inspection: normal respiratory effort Cardio Rate: regular rate GI Inspection: non-distended Palpation: soft Skin General: no rashes or lesions noted Neuro General: patient oriented x3 Extrem General: no clubbing, cyanosis or edema Psych Affect: normal affect Assessment and Plan Assessment and Plan (1) Breast cancer: Status: Acute Comment: Invasive ductal, ER/MA positive, HER2/maty equivocal FISH pending, grade 2 Orders: Orders Lymph Node Injection Only 10/02/24 C50.919 - Malignant neoplasm of unspecified site of unspecified female breast Plan I have given the patient options for initial surgical treatment. Options are the following: lumpectomy followed by radiation therapy vs. mastectomy vs. mastectomy followed by immediate reconstruction. I have described the procedures to the patient. I have described the advantages and disadvantages of the options, but I have told the patient that among the options, the survival rate for breast cancer is the same. Patient did also understand that plastic surgery would be covered with insurance if she chose to get reconstruction. I have told the patient that with all the surgeries that a sentinel lymph node biopsy is required. I have described the procedure of sentinel lymph node biopsy to the patient. I have told the patient that if the biopsy is positive for metastatic disease, then a full axillary lymph node dissection is required. I have told the patient that adjuvant chemotherapy will be required should the lymph nodes reveal metastatic disease. Also, a full lymph node dissection will increase the risk for lymphedema, especially if there are 4 or more lymph nodes positive for metastatic disease and radiation to the axilla is also required. I have told the patient the risks of surgery, including but not limited to: infection, bleeding, scar tissue, seroma and persistent seroma, lymph leak, injury to any blood vessels, injury to any nerves (particularly the long thoracic, the thoracodorsal, and the second intercostal brachial and the resultant sequelae), lymphedema, cosmetic deformity, dysesthesias, wound infections, further surgery (especially if margins are not clear), complications of anesthesia, etc. the patient understands. Patient would like to move forward with an ultrasound-guided right breast wire localization lumpectomy, sentinel lymph node biopsy, injection of blue dye and radiotracer, possible axillary lymph node dissection I have answered all the patient?s questions at this point to her satisfaction and she has no further questions. Siobhan Landrum M.D. Pager: [phone] [facility] [address] [place] [address], [address] [place] [address] Office: [phone] Coding Level of Care Code Off vis,est,level 4 Diagnoses Breast cancer C50.919 10/03/24 0851 <Electronically signed by Siobhan Landrum MD> Date Siobhan Landrum MD
[2024-10-20] MEDS: Isosulfan Blue 1% 5 ML Vial (07:08)
[2024-10-20] MEDS: 0.9% Normal Saline (Pres. free 10 ML Vial (07:08)
[2024-10-20] MEDS: Lactated Ringers 1,000 ML 15 ML IV (07:08)
--- NOTE | 2024-10-20 07:12 | PCM.PRE.AN2 ---
ASA Classification* ASA Classification ASA Classification: 2 Assessment & Plan Anesthesia* Anesthesia Assessment Anesthesia Assessment: Discussed sedation and/or anesthesia options, risks, benefits, and alternatives with patient/parents/legal guardian/POA. Questions invited. The patient/parents/legal guardian/POA seems to understand and agrees to proceed with anesthesia plan. Reviewed the physical assessment, medical history, allergy history and patient home medications list prior to surgery/procedure/anesthetic and documented any changes. Performed airway and anesthesia risk assessments. Anesthesia Type Anesthesia Type: General History Source History Obtained from:: Patient and Chart Anesthesia Focused Assessment* Temperature: 98.2 F Pulse Rate: 76 Blood Pressure: 142/94 Respiratory Rate: 17 Pulse Ox: 95 Oxygen Delivery Method: Room Air Airway Assessment Mouth opens: >3 cm Mallampati Score: I Teeth Condition: Intact Neck Range of motion (ROM): Full ROM Focused Labs Anesthesia Preop lab: CBC WBC 8.7 K/mm3 (4.4-11.0) 09/14/24 13:09/14/24 RBC 5.10 M/mm3 (4.2-5.4) 09/14/24 13:09/14/24 Hgb 14.9 g/dL (12.0-15.0) 09/14/24 13:09/14/24 Hct 42.6 % (37-47) 09/14/24 13:09/14/24 Plt Count 392 K/mm3 (150-450) 09/14/24 13:27 09/14/24 CHEMISTRY Potassium 3.5 mmol/L (3.3-5.1) 09/14/24 13:09/14/24 Sodium 137 mmol/L (133-145) 09/14/24 13:09/14/24 BUN 15 mg/dL (4-19) 09/14/24 13:09/14/24 Creatinine 0.87 mg/dL (0.70-1.20) 09/14/24 13:09/14/24 Glucose 90 mg/dL (70-99) 09/14/24 13:09/14/24 TSH 1.270 uIU/mL (0.300-4.200) 09/14/24 13:09/14/24 COAG Pre-Assessment Diagnosis/Proposed Procedure Planned Operative Procedure(s): U/S GUIDED WIRE LOCALIZATION LUMPECTOMY RIGHT BREAST WITH SENTINEL LYMPH NODE BIOPSY AND POSS AXILLARY DISSECTION Anesthesia History 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 When Was Last Pacemaker Check QUESTION #4 FULL TEXT: You/Your Family Experience fever (hyperthermia) with Anesthesia Last Oral Intake Last Oral intake: Last Oral Intake NPO since 05:10 10/20/24 07:04 Meds taken in AM with sips of water? Meds patient instructed to take am of surgery PONV PONV - human resources department supervisor: PONV - human resources department supervisor Female Yes 10/06/24 13:09 HX of Motion Sickness Yes 10/06/24 13:09 HX of N/V After Surgery Yes 10/06/24 13:09 Non-Smoker Yes 10/06/24 13:09 Duration of Surgery greater Yes 10/06/24 13:09 than 60 minutes Number of Risk Factors 5 10/06/24 13:09 PONV Score Severe Risk 10/06/24 13:09 Height & Weight Height & Weight: Anesthesia: Height & Weight Height 5 ft 10/20/24 07:04 Weight: 81.1 kg 10/20/24 07:04 Body Mass Index (BMI) 34.9 10/20/24 07:04 Respiratory Assessment Respiratory Assessment - human resources department supervisor: Respiratory Tract Infection Hx - human resources department supervisor Hx Respiratory Tract Infection No 10/06/24 13:09 STOP Sleep Apnea STOP Sleep Apnea - human resources department supervisor: STOP Sleep Apnea - human resources department supervisor Hx Hypertension Yes: CONTROLLED WITH MED 10/06/24 13:09 Hx Sleep Apnea No 10/06/24 13:09 CPAP BIPAP Do you snore loudly (louder No 10/06/24 13:09 than talking or can be heard Do you often feel tired/ No 10/06/24 13:09 fatigued/ sleepy during daytime? Has anyone observed you stop No 10/06/24 13:09 breathing during sleep? STOP Results Negative 10/06/24 13:09 QUESTION #5 FULL TEXT : Do you snore loudly (louder than talking or can be heard through closed doors)? Tobacco Use History Tobacco Use History - human resources department supervisor: Tobacco Use History - human resources department supervisor Tobacco Use Smoking Status Former smoker 10/06/24 13:09 Hx Tobacco Use No 10/06/24 13:09 Years Smoking Packs Smoked per Day Smoking Cessation Date was Yes - quit smoking within 15 10/06/24 13:09 within the last 15 years years Hx Smoking Cessation Date Hx Smoking Cessation No 10/06/24 13:09 Counseling Hematologic Medial History Hematologic Hx - human resources department supervisor: Hematologic Medical Hx - fowl blood tester Hx of Blood Transfusion No 10/06/24 13:09 Hx of Transfusion in last 3 No 10/06/24 13:09 Months Date of Last Transfusion (if within last 3 months) Ever experience any problems No 10/06/24 13:09 with transfusion(s)? Specify any problems Hx of Preganancy in last 3 No 10/06/24 13:09 Months Nurse Filling Out Transfusion DSCHRIBER 10/06/24 13:09 & Questions: Date: 10/06/24 10/06/24 13:09 Time: 13:09 10/06/24 13:09 Patient unable to answer at this time (ie. confused, unrespo /Reproduction History /Reproductive History - human resources department supervisor: /Reproductive Hx- human resources department supervisor Hx Now Gestational Age (in weeks): EDC: Hx Hx Para Hx Section SAB No 10/06/24 13:09 Active Medications Active Medications: Current Medications Generic Name Dose Route Start Last Admin Trade Name Freq PRN Reason Stop Dose Admin Cefazolin Sodium 2 gm/ N/A 20 mls @ 400 mls/hr 10/20/24 08:00 IV 10/20/24 08:02 INTRAOP ONE Lactated Ringer's 1,000 mls @ 15 mls/hr 10/20/24 06:45 10/20/24 07:08 IV 15 mls/hr .Q48H TEO Administration PFSH Medical History Breast cancer Post-menopausal Thyroid disease Cancer Alcohol use Arthritis Frequent headaches Shortness of breath on exertion Former smoker Esophageal abrasion Stomach ulcer Polycystic ovaries Hormone deficiency Marks esophagus HTN (hypertension) Home Medications ?Medication ?Instructions ?Recorded ?Last Taken ?Type lactobacillus combination no.9 4 4,000 mmu cells PO QDAY 05/19/24 10/19/24 History billion cell capsule (Adult 50 Plus Probiotic) multivitamin 1 tab PO QAM 07/27/24 10/19/24 History hydrochlorothiazide 25 mg tablet 25 mg PO QDAY 09/25/24 10/19/24 History pantoprazole 40 mg tablet,delayed 40 mg PO DAILY 09/26/24 10/20/24 History release Allergy/AdvReac Type Severity Reaction Status Date / Time codeine Allergy Mild Other Verified 10/20/24 07:03 Sulfa (Sulfonamide Allergy Mild Nausea/Vom/ Verified 10/20/24 07:03 Antibiotics) Diarrhea latex AdvReac Mild Itching Verified 10/20/24 07:03 Family History Grandmother Arthritis Parkinsons disease CVA (cerebral vascular accident) Mother Hypertension Grandfather Parkinsons disease Cancer leukemia, (MGF and mat uncle) Sister Breast cancer 2 half sisters(same father) with BRCA negative breast cancer. One age 53. Other had lumpectomy/radiation and doing well. Uncle Cancer Maternal: leukemia, esophageal. Surgical History Hx of LASIK Hx of colonoscopy History of esophagogastroduodenoscopy (EGD) S/P section S/P appendectomy History of repair of hiatal hernia Social History household members: spouse housing: house current occupational status: employed current occupation: [employer] Smoking Status: Former smoker alcohol intake: current substance use type: does not use additional social history: - Bg Review of Systems (Anesthesia) ROS Narrative System reviewed and no additional complaints, except as documented.
--- NOTE | 2024-10-20 07:30 | NM_ITS ---
EXAM: [place] node imaging. CLINICAL HISTORY: Right breast cancer. COMPARISON: No priors available. TECHNIQUE: 559 mCi of Lymphoseek was injected in the subdermal region of the right periareolar region. FINDINGS: Subdermal injection of 559 mCi of Lymphoseek for right sentinel node imaging. NM/Lymph Node Injection Only IMPRESSION: Subdermal injection of 559 mCi of Lymphoseek in the subdermal region of the rig ht periareolar area for sentinel node imaging. Reading Location: [facility]
[2024-10-20] MEDS: Cefazolin 2 GM in Syringe IV (07:50)
--- NOTE | 2024-10-20 08:00 | BREAST_PTH ---
PATIENT: JENNIFER BOATENG LOC: [facility] – [place] U#:[id number] AGE/SX: 59/F ROOM: RE10/20/[address]: Dr. Siobhan Landrum MD : 1965 BED: DIS: 10/20/2024 SPEC #: [id number] RECD: 10/20/24 09:29 STATUS: HARPAL RENorma #: [id number] LEVI: 10/20/24 08:[address]: iSobhan Landrum DEPT: SURGICAL PATHOLOGY RECD BY: Paul Bunn ENTERED: 10/20/24 09:32 SP TYPE: BREAST OTHR DR: Dr. Estrella Peters MD Tissues: A - Lymph node, NOS B - Lymph node, NOS C - Right breast, NOS D - Right breast, NOS E - Right breast, NOS Procedures: Frozen Section (charge) Immunohistochemical Stains Frozen Section Add'l ([facility]) Surgery Specimen Level IV Surgery Specimen Level V IHC Stain ADDITIONAL HEADER OPERATION: Breast, lumpectomy, sentinel node, ultrasound guided wire localization PRE-OP DIAGNOSIS: Breast cancer TISSUE SUBMITTED: A- Right breast sentinel lymph node, B- Right breast sentinel lymph node, C- Right breast lumpectomy, D- Right breast: new deep margin *left stitch- new deep margin, short stitch- superior*, E- Right breast: new inferior margin Ischemic Time: 1 minute Fixation Time: hours FROZEN SECTION DIAGNOSIS A. Right breast sentinel lymph node: Negative for macrometastasis. B. Right breast sentinel lymph node: Two lymph nodes, negative for macrometastasis. C. Right breast, lumpectomy: Mass is closest to inferior margin, grossly appears to be 0.2-0.3cm. 10/20/2024 MICROSCOPIC DIAGNOSIS A. Right axilla, sentinel lymph node, biopsy: * Positive for micrometastasis (1/). * IHCs for pancytokeratin (A1,A2,A3,A4) and ER (A2) support the diagnosis. B. Right axilla, sentinel lymph node, biopsy: * Negative for metastasis (0/2). * IHCs for pancytokeratin (B1,B2) support the diagnosis. C. Right breast, lumpectomy: * Invasive ductal carcinoma NST, 1.1 cm, surgical margins free - see Synoptic Report. * Grade 2 (tubule 3, nuclear 2, mitosis 1) * pT1c pN1mi * Scattered microcalcifications noted. D. Right breast, new deep/medial margin, excision: * Negative for malignancy. * Microcalcifications noted. E. Right breast, new inferior margin, excision: * Negative for malignancy. * Usual ductal hyperplasia, microcalcifications noted. COMMENT SYNOPTIC REPORT FOR INVASIVE BREAST CARCINOMA Specimen (P=partial, M=mastectomy):?P Laterality?(R=right, L=left):?R Focality (U=unifocal, M=multifocal):?U Tumor size (cm):?1.1 x 1.1 x 0.9 cm Histologic type:?invasive ductal carcinoma NST Histologic grade:?2 ??? Tubule score (1-3) 3 ??? Nuclear score (1-3):?2 ??? Mitotic score (1-3):?1 Skin, nipple epidermis,?skeletal muscle (I=involved, N=negative, NA=not applicable):?NA Lymphovascular invasion (E=extensive, F=focal, N=not identified):?N Margins of main specimen (P=positive, N=negative):?N Distance to closest margin of main specimen (mm):?3 mm Designation of closest margin of main specimen:?medial, inferior Designation of other margins of main specimen </=1 mm:?NA Re-resection margin status (P=positive, N=negative, NA=not applicable):?N ? DCIS (P=present, N=not identified):?N ? Regional lymph nodes: ?? Total number of lymph nodes:?3 ???Number of sentinel lymph nodes:?3 ?? Number with macrometastases:?0 ?? Number with micrometastases:?1 ?? Number with isolated tumor cells:?0 ???Size of largest jonathan metastasis (mm):?approximately 0.3 mm ?? Size of extranodal extension (mm) (N=not identified):?NA ? ER: positive (100% strong intensity) NE: positive (95% intermediate to strong intensity) [id number]: equivocal (2+) GCB2ZNSG: negative (performed at [facility] 10/30/2024) Specimen in which ER/NE/HER2 performed:?[id number] pTNM:?pT1c pN1mi Additional findings:?fat necrosis and focal hemorrhage, apocrine metaplasia, usual ductal hyperplasia Comment:?A radiograph of the breast specimen was performed to assist in the sectioning of the specimen. Selected slides were reviewed in intradepartmental consultation by Dr Stephen Singleton ([facility] pathology division, [facility]). IHCs utilized in the assessment: Pancytokeratin (A1,2,3,4, B1,2) CK5/6 (C5, E2) E-cadherin (C5) ER (A2) ? The above synoptic report complies, in slightly modified form, with the guidelines of the [employer] [place] [employer] and the Association of Directors of Anatomic and Surgical Pathology for the reporting of cancer specimens ? MICROSCOPIC DESCRIPTION Slides are reviewed. All matched controls reacted appropriately. These tests were developed and their performance characteristics determined by [facility]. They may not have been cleared or approved by the U.S. Food and Drug Administration. The FDA has determined that such clearance or approval is not necessary.? The above immunohistochemical/dualISH?markers are ordered and reviewed by the Pathologist. GROSS DESCRIPTION A. Received fresh for intraoperative consultation in a container labeled with the patient's name, date of , and right breast-[place] node is a 3.0 x 2.8 x 2.0 cm fragment of maldonado-yellow fatty tissue. Serial sections reveal a 2.4 x 0.3 cm maldonado-pink and possibly fat replaced lymph node candidate. Caterer'S Aide sections of the possible lymph node are submitted for frozen section analysis. The fat is retained, and the possible lymph node is submitted entirely as follows:A1. Frozen section remnantA2-4. Remainder of possible lymph node B. Received fresh for intraoperative consultation in a container labeled with the patient's name, date of , and right breast sentinel lymph node are 2 fragments of maldonado-yellow adipose tissue measuring 1.7 x 1.5 x 0.9 cm and 2.7 x 2.0 x 1.4 cm. The smaller fragment is sectioned to reveal a 0.6 x 0.6 x 0.6 cm rubbery possible lymph node. The larger is sectioned to reveal a 1.5 x 1.3 x 1.0 cm possible lymph node. The possible nodes are submitted entirely for frozen section analysis. The fat is retained, and the possible lymph nodes are submitted entirely as follows:B1. Frozen section remnants of smaller lymph node candidateB2. Frozen section remnants of larger lymph node candidate C. Received fresh for intraoperative consultation in a container labeled with the patient's name, date of , and right breast: Lumpectomy is an oriented, 14.7 g lumpectomy specimen with a long stitch indicating lateral margin and short stitch indicating superior margin. Protruding from the anterior/lateral margin is a metal localization wire.The specimen is 3.8 cm from superior to inferior, 3.5 cm from medial to lateral, and 2.4 cm from anterior to posterior. Ink gaytan:Wabvxdpq-tjmkBzfrinfk-lwlmkTrvzat-udqVldiscd-yramvxZqphwbmq-pnojqlGgfrorkwg-black The specimen is serially sectioned from superior to inferior into 7 slices to reveal a white-maldonado, firm, and ill-defined mass within slices 4-7, towards the medial/inferior aspect. A coiled metal biopsy clip is identified within the mass in slice 6.Mass measurement: 1.1 x 1.1 x 0.9 cm. It is situated to the margins as follows:Inferior: 0.2 cmAnterior: 0.3 cmMedial: 0.4 cmPosterior: 0.5 cmLateral: 1.2 cmSuperior: 1.4 cm The remaining cut surfaces are comprised of approximately 80% maldonado-yellow adipose tissue and 20% white fibrous septa with scattered hemorrhage. No other mass lesion is identified. Caterer'S Aide sections are submitted as follows:C1. Slice 1, perpendicular sections of superior marginC2. Slice 3, anterior, medial, and posterior margins adjacent to massC3. Slice 4, mass to anterior, posterior, and medial marginsC4. Slice 5, mass to anterior, posterior, and medial marginsC5-6. Slice 6, bisected and entirely submitted (area of greatest dimension, area of biopsy clip, and closest margins)C7. Slice 6, serial section of mass at greatest dimension to closest anterior and medial marginC8-9. Slice 7, perpendicular sections of inferior margin with mass and hemorrhage Total formalin fixation time: Between 6 and 72 hours. D. Received in formalin in a container labeled with the patient's name, date of , and Right breast new deep medial margin, left stitch new deep medial margin, short stitch superior is an oriented, 3.5 g additional lumpectomy specimen with stitches indicating margins. The specimen is 2.8 x 2.4 x 1.2 cm.The new margin is inked green, the superior border is inked blue, and the inferior border is inked red. The specimen is serially sectioned from lateral to medial to reveal maldonado-yellow, uniform surfaces with scattered fibrous tissue. No masses are identified. The specimen is entirely submitted from lateral to medial as follows:D1. Lateral aspectD2-3. Midportion of specimenD4. Medial aspect E. Received in formalin in a container labeled with the patient's name, date of , and right breast new inferior margin long stitch lateral, short stitch new inferior margin is an oriented, 2 g additional lumpectomy specimen with stitches indicating margins. The specimen is 2.0 x 2.0 x 1.1 cm.The new inferior margin is inked green, the anterior border is inked orange, and the posterior border is inked black. The specimen is serially sectioned from lateral to medial to reveal maldonado-yellow, uniform surfaces with no masses identified. Submitted entirely as follows:E1. Lateral aspectE 2. Midportion of specimenE 3. Medial aspect [facility] 10-20-2024 CPT:[id number] ADDENDUM ADDENDUM ADDENDUM ADDENDUM ADDENDUM ADDENDUM ADDENDUM ADDENDUM ADDENDUM ADDENDUM 11/23/2024 09:23 ADDENDUM 11/23/2024 09:23 ADDENDUM 11/23/2024 09:23 ADDENDUM 11/23/2024 09:23 ADDENDUM 11/23/2024 09:23 ONCOTYPE DX BREAST RECURRENCE SCORE REPORT RECURRENCE SCORE RESULT: 7 DISTANT RECURRENCE RISK AT 5 YEARS: 2% GROUP AVERAGE ABSOLUTE CHEMOTHERAPY BENEFIT: No apparent chemotherapy benefit (<1%) Please see complete above mentioned consultation report in EMR
--- NOTE | 2024-10-20 09:06 | BI_ITS ---
PROCEDURE: BREAST BIOPSY SPECIMEN 10/20/2024 REASON FOR EXAM: Mass was localized for surgical removal. Document whether mass is present in the specimen. Right breast cancer. Cancer was localized for surgical removal. TECHNIQUE: A single specimen radiograph was obtained COMPARISON: Mammogram dated 09/21/2024 and 01/27/2022. A breast MRI report dated 09/28/2024 was also reviewed. BI/Breast Biopsy Specimen IMPRESSION: A single specimen radiograph was obtained and demonstrates a radiopaque clip, a radiopaque wire and a spiculated mass to be present in the specimen. There are also calcifications within the specimen. T here do appear to be clear margins however pathology is pending. Reading Location: [id number]
--- NOTE | 2024-10-20 09:14 | OP.PCM_ITS ---
Oncology: Carey Requirements . Oncology surgical intervention performed: [place] Node Biopsy for Breast Cancer performed [place] Node Bx - Breast Cancer: Synoptic Portion: Element Response Options Operation performed with curative intent. Yes Tracer(s) used to identify sentinel nodes in the upfront surgery (non- neoadjuvant) setting (select all that apply). Dye; Radioactive tracer Tracer(s) used to identify sentinel nodes in the neoadjuvant setting (select all that apply).N/A. All nodes (colored or non-colored) present at the end of a dye-filled lymphatic channel were removed. Yes All significantly radioactive nodes were removed. Yes All palpably suspicious nodes were removed. N/A. Biopsy-proven positive nodes marked with clips prior to chemotherapy were identified and removed. N/A. Operative Report (Standard) Operative Information Date of Procedure: 10/20/24 Pre-Operative Diagnosis: Right breast cancer Post-Operative Diagnosis: Same Surgery/Procedure Performed: Ultrasound-guided right wire localization lumpectomy, sentinel lymph node biopsy, injection of Lymphazurin blue, Lymphoseek, sentinel lymph node biopsy business development officer: Yes Staffing Consultant: Rivas Whatley Tasks completed by assistant producer: Opening & closing and Retracting Type of Anesthesia: General/Supplemental RN Documented Start/Stop Times: Operation Date: 10/20/24 08:00 Case Time Into Pre-Op 10/20/24 06:39 Anesthesia Start 10/20/24 07:50 Into Room 10/20/24 07:50 Out of Pre-Op 10/20/24 07:50 Procedure Start 10/20/24 08:15 Procedure End 10/20/24 09:48 Anesthesia End 10/20/24 09:52 Out of Room 10/20/24 09:52 Into Recovery 10/20/24 09:56 Into Phase II Recovery 10/20/24 10:55 Out of Recovery 10/20/24 10:55 Procedure Start Time: 08:15 Procedure Stop Time: 09:48 Select all DRAINS/GRAFTS/IMPLANTS that apply: None Special Medications: Ancef 2 g IV x 1 Estimated Blood Loss: <10 cc Specimen collected: Yes Description of specimen(s) removed: 1. Right sentinel lymph node, 2. Right sentinel node x 2, 3. Right breast lumpectomy, 4. Right breast new medial deep margin Description of surgery: In AC the breast tissue was injected with Lymphoseek. 30 minutes later the patient was taken to the operating room and general anesthesia was induced. 5 cc of Lymphazurin 1% blue dye was injected in the 4 quadrants periareolar along with 10 cc of normal saline. This was massaged gently for 5 minutes. The right breast and axilla were prepped and draped in usual sterile fashion. A timeout was completed verifying correct patient, procedure, site, positioning, special equipment prior to beginning procedure. Handheld gamma probe was used to identify the location of the hottest spot in the axilla. Prior to the incision, the counts were 500. The incision was made in the hot and blue was identified. The probe was placed in contact with the node in the 10 count was 4625, additional hot and blue nodes with a 10 counts of 2723 and 959. The bed of the node measured 15 counts. No additional blue or hot nodes or palpable were detected. Frozen had 3 sentinel lymph nodes negative for macrometastasis. Ultrasound was use for localization of the breast mass using the Kopan's needle. The wire was placed just inferiorly to the mass. A curvilinear incision was planned in such a way as to minimize the amount of dissection to reach the mass. Flaps were raised in the location of the wire confirmed. The wire was delivered into the wound. 2 silk xgatsq-wi-cupcr stay suture was placed around the wire and used for traction. Dissection was then taken down circumferentially, taking care to include the entire localization needle and wide margin of grossly normal tissue. The specimen and entire localizing wire were removed. The specimen was oriented and sent to radiology.. Confirmation was received that the entire target lesion had been resected and clip. Additional deep medial margin was also taken and oriented. 3 medium clips were placed in the line at the deep area of the cavity. The cavities were irrigated. Hemostasis was checked. The breast and axillary incisions were closed with interrupted sutures of 3-0 Vicryl and subcuticular sutures of 4-0 Monocryl. No attempt was made to close the space. Dermabond for the axillary incision and Steri-Strips for the breast incision. A supportive bra was placed. The patient tolerated procedure well was taken to the postanesthesia care in stable condition Surgical Findings: 3 lymph nodes negative for macrometastasis on frozen Complications Complications: No
--- NOTE | 2024-10-20 09:22 | EX.PCM.DISCH ---
Discharge Instructions Diet Discharge Diet: No restrictions Activity Discharge Activity: May Not Drive (for 2-3 days or while taking narcotic pain meds.) May shower in (days): 1 Lifting Restrictions: 10 pounds for 1 week. Dressing / Incision Call your doctor if your incision/area has: Continuous Slow Oozing, Sudden Increased Bleeding, Increased Pain/ Swelling and Increased Redness Call your doctor if you observe: Fever of 101 or Higher Suture Line Care: Avoid Pulling/Pushing and Avoid Pinching/Bending Remove Dressing in: 1 day Additional Dressing/Incision Instructions:: Remove bulky dressing tomorrow. May leave op-site dressing for 3-4 days. Dermabond (glue) was used at the axillary incision this may start to peel off in about 5 days. Okay to remove Steri-Strips from the breast incision in 7 to 10 days. Follow Up Care Please Follow Up With: Siobhan Landrum MD When: Please call [phone] for an appointment to be seen in 2 week. Test Results: Test results from this visit will be discussed in further detail at your follow-up appointment, if applicable. Discharge Plan Admission Attending Provider: Siobhan Landrum Primary Care Provider: Estrella Peters Instructions Print Language: Armenian Discharge Orders/Prescriptions Prescriptions: New tramadol 50 mg tablet 50 mg PO Q6H PRN (Reason: pain) Qty: 10 0RF Continued Adult 50 Plus Probiotic 4 billion cell capsule 4,000 mmu cells PO QDAY Rx Instructions: administer with a meal multivitamin Tablet 1 tab PO QAM hydrochlorothiazide 25 mg tablet 25 mg PO QDAY pantoprazole 40 mg tablet,delayed release (DR/EC) 40 mg PO DAILY Referrals / Follow Up: Estrella Peters MD [Primary Care Provider] - Disposition Disposition (needs filled in before D/C Order can be placed): Home, Self Care
[2024-10-20] MEDS: Bupivacaine 0.25% 30 ML Vial (09:40)
--- NOTE | 2024-10-20 09:56 | PCM.POST.ANE ---
Anesthesia: Postop Eval I Current Vital Signs Temperature: 98.1 F Pulse Rate: 79 Blood Pressure: 135/78 Respiratory Rate: 14 Pulse Ox: 91 Assessment Airway patent: Yes Spontaneous unlabored respirations: Yes nausea: No Vomiting: No Anesthesia Complication: No Fluid Hydration Crystalloid volume administer (ml): 1,300 Total IV fluid infused: 1,300 Progress Note Anesthesia document: Postop Eval 1 completed: Yes
--- NOTE | 2024-10-20 10:31 | POSTOPAN2_ITS ---
Anesthesia Postop Eval I Sum Postop Eval Completion status Anesthesia document: Postop Eval 1 completed: Yes Anesthesia Postop Eval I Summary Anesthesia Postop Eval I Summary: Anesthesia Postop Eval I: Assessment Summary Airway patent Yes 10/20/24 09:56 INSPECTOR [email or web address] Spontaneous unlabored Yes 10/20/24 09:56 INSPECTOR [email or web address].TNES respirations Mental status nausea No 10/20/24 09:56 INSPECTOR [email or web address].TNES Vomiting No 10/20/24 09:56 INSPECTOR [email or web address].TNES Anesthesia Postop Eval I: Fluid Summary Crystalloid volume administer 1,300 10/20/24 09:56 INSPECTOR [email or web address].TNES (ml) Colloids volume administered ( ml) Blood Product volume administered (ml) Total IV fluid infused 1,300 10/20/24 09:56 INSPECTOR [email or web address].TNES Anesthesia Postop Eval I: Summary Notes Anesthesia Complication No 10/20/24 09:56 INSPECTOR [email or web address].TNES Anesthesia Complication Comment: Post-operative progress note Anesthesia: Postop Eval II Evaluation Mental status: Asleep Pain Level: 0 nausea: No Vomiting: No Complications Anesthesia Complication: No
--- NOTE | 2024-10-20 10:31 | PCM.POSTANE2 ---
Anesthesia Postop Eval I Sum Postop Eval Completion status Anesthesia document: Postop Eval 1 completed: Yes Anesthesia Postop Eval I Summary Anesthesia Postop Eval I Summary: Anesthesia Postop Eval I: Assessment Summary Airway patent Yes 10/20/24 09:56 TAPPER [email or web address] Spontaneous unlabored Yes 10/20/24 09:56 TAPPER [email or web address].TNES respirations Mental status nausea No 10/20/24 09:56 TAPPER [email or web address].TNES Vomiting No 10/20/24 09:56 TAPPER [email or web address].TNES Anesthesia Postop Eval I: Fluid Summary Crystalloid volume administer 1,300 10/20/24 09:56 TAPPER HELPER.TNES (ml) Colloids volume administered ( ml) Blood Product volume administered (ml) Total IV fluid infused 1,300 10/20/24 09:56 TAPPER [email or web address] Anesthesia Postop Eval I: Summary Notes Anesthesia Complication No 10/20/24 09:56 TAPPER [email or web address].TNES Anesthesia Complication Comment: Post-operative progress note Anesthesia: Postop Eval II Evaluation Mental status: Asleep Pain Level: 0 nausea: No Vomiting: No Complications Anesthesia Complication: No
[2024-10-20] MEDS: traMADol 50 MG Tablet PO (11:20)
== END 2024-10-20 12:53 | disposition home or self-care (01) ==
LOC: SDC 06:33 → AC 06:34
PROVIDERS: PCP Family Medicine; Referring Provider Surgery; Visit Provider Surgery
PROC: 0HBV0ZZ Excision of Bilateral Breast, Open Approach (ICD-10-PCS; CPT 19302; principal; 2024-10-20 07:45)
DX: C50.911 Malignant neoplasm of unspecified site of right female breast (principal); I10 Essential (primary) hypertension; Z17.0 Estrogen receptor positive status [ER+]; Z79.899 Other long term (current) drug therapy; Z87.891 Personal history of nicotine dependence
CPT/HCPCS: 19301; 38525; 00404; 38792; 76098; 88305; 88307; 88331; 88332; 88341; 88342; A4648; A9520; J2405; Q9968

== ENCOUNTER → 2024-11-21 | Outpatient (CLI) | payer OTHER, SELFPAY ==
--- NOTE | 2024-11-21 08:30 | BD_ITS ---
PROCEDURE: DEXA BONE DENSITY STUDY 11/21/2024 REASON FOR EXAM: POST MENOPAUSE PRE HORMONAL RX F, age 59 y/o . Postmenopausal. TECHNIQUE: DXA scan of sites with data reported below. [facility] Position[facility] COMPARISON: None FINDINGS: BMD and T-SCORES Lumbar spine: 1.184 g/cm2, T-score 1.2 Levels: L1 through L4 Left femoral neck: 1.155 g/cm2, T-score 2.8 Femoral neck comparison data not recommended for monitoring change. Left total hip: 1.229 g/cm2, T-score 2.4 Right femoral neck: 1.121 g/cm2, T-score 2.4 Femoral neck comparison data not recommended for monitoring change. Right total hip: 1.205 g/cm2, T-score 2.2 .The World Health Organization has defined the following categories based on bone density: Normal bone density: T-score equal to or greater than -1.0 Osteopenia: T-score between -1.0 and -2.5 Osteoporosis: T-score equal to or less than -2.5 The patient does meet the pharmacological treatment recommendations for prevention of osteoporosis. BD/Dexa Bone Density Study IMPRESSION: NORMAL T-SCORES. Recommend follow-up as clinically warranted. Reading Location: [place] [id number]
== END | disposition home or self-care (01) ==
LOC: OPBD 08:25
PROVIDERS: PCP Family Medicine; Referring Provider Internal Medicine Hematology & Oncology; Visit Provider Internal Medicine Hematology & Oncology
DX: C50.911 Malignant neoplasm of unspecified site of right female breast (principal); C77.9 Secondary and unspecified malignant neoplasm of lymph node, unspecified; Z17.0 Estrogen receptor positive status [ER+]; Z78.0 Asymptomatic menopausal state
CPT/HCPCS: 77080

== ENCOUNTER 2025-01-19 09:00 | Outpatient (RCR) | payer OTHER, SELFPAY ==
--- NOTE | 2025-01-12 09:58 | HP.OTEVAL ---
Patient's Visit Information Visit Information Visit Information: JENNIFER BOATENG is a 59 year old F, referred to Occupational Therapy by Dr. Juan Maldonado DO, with a diagnosis of lymphedema, right breast cancer. Date of Evaluation: 01/12/25 Occupational Therapist: CATA Wynn/Angie, CHT Subjective Subjective: This 59 year old female was seen for OT eval with dx of Lymphedema, Breast cancer. Pt states September was her sx. pt states she did develop a hematoma in 2 weeks following sx. pt has lumpectomy right side and 3 lymph nodes- with 15 radiation. pt is getting shooting pain and zingers in her fingers- starting radiation may have had swelling but forearm felt tight in her right forearm. pt works in [employer] and struggles with issues of the feeling of discomfort in her right arm with work tasks. pt would like to know what she can do to decrease her symptoms. Pain right UE: Current Pain Intensity: 0 Pain Intensity Range: 7 and 8 ROM ROM Comments: pt demo full bilateral UE shoulder ROM Lymphedema (Circumferential Measure) MCP: right 19cm left 19cm Wrist: right 17cm left 17cm Lower forearm: right 21cm left 21.5cm Largest forearm: right 26cm left 25cm Elbow: right 28cm left 27cm Largest humerus: right 31cm left 32cm Axcillary: right 37cm left 35cm Goals Goal: Patient will demonstrate a 20% reduction in edema by discharge: Yes Goal: Patient will demonstrate adequate knowledge of self-massage by the end of the second week.: Yes Goal: Patient will demonstrate adequate knowledge of skin care and precautions by the end of the first week.: Yes Goal: Patient will demonstrate adequate knowledge of therapeutic exercises by discharge.: Yes Goal: Patient will select an appropriate compression garment and demonstrate adequate knowledge of correct donning technique, care and wearing schedule by discharge.: Yes Goal: Patient will voice understanding of need to replace compression garment every four to six months by discharge.: Yes Rehabilitation General Assessment: pt demo with slight swelling of right dominate UE following lumpectomy and radiation. pt did have complications of having hematoma drained a number of times at right axillary. pt reporting nerve symptoms of tingling/pain throughout ulnar nerve distribution. pt would benefit from skilled OT services 1-2 x a week for 4 weeks to ed. pt on self lymph massage, ex. to stimulate lymph circulation, compression devices and ulnar nerve glides. Therapist will ed. pt on signs/symptoms of axillary webbing syndrome, scar mtg and postural exercises. pt demo understanding and agree to POC. Rehabilitation Potential: Good Anticipated Interventions Anticipated Interventions: A/AAROM/PROM, Education re Diagnosis and Manual Lymph Drainage Visit Plan Frequency: 1-2x /Week Duration: 4 Weeks TEXT: Thank you for the opportunity to evaluate your patient. For Medicare and Medicare HMO plans, please review the plan of care and approve it. It will need to be FAXED BACK to us at [phone] for Medicare purposes. Please let me know if there are questions or concerns regarding this plan of care. Physician Signature: Date:
--- NOTE | 2025-07-12 08:33 | HP.OT.NRP ---
Patient Information Patient Information: JENNIFER BOATENG was seen in my office for initial evaluation on 01/12/25. The following Plan of Care was established for this patient: POC Established Initial Frequency: 1-2x /Week Initial Duration: 4 Weeks Anticipated Interventions Anticipated Interventions: A/AAROM/PROM, Education re Diagnosis and Manual Lymph Drainage Last Seen Last Seen: This patient was last seen in our office 01/19/25. Pertinent comments regarding their Occupational therapy will appear below: Due to time lapse in services pt in D/C at this time. At this point I will be discontinuing this patient from occupational therapy. I would be happy to see this patient again in the future if found appropriate by the physician. Thank you! Kristina Doty, OTR/L, CHT
== END 2025-01-19 19:00 | disposition home or self-care (01) ==
LOC: OT 09:00
PROVIDERS: PCP Family Medicine; Referring Provider Student in an Organized Health Care Education/Training Program; Visit Provider Student in an Organized Health Care Education/Training Program
DX: C50.911 Malignant neoplasm of unspecified site of right female breast (principal)
CPT/HCPCS: 97110; 97140; 97166

== ENCOUNTER → 2025-03-01 | Outpatient (CLI) | payer OTHER, SELFPAY ==
[2025-03-01 12:26] LABS: Hematocrit 41.7 % (37-47); Hemoglobin 14.3 g/dL (12.0-15.0); Immature Granulocytes Count 0.050 X10^3/uL (0.0-0.0); Mean Corp Hgb Conc 34.3 g/dL (32-36); Mean Corpuscular Volume 85.1 fL (81-99); Mean Platelet Vol. 10.4 fl (6.2-12.0); NRBC Flagged by Analyzer 0 % (0-5); Platelet Count 374 K/mm3 (150-450); RBC Distribution Width CV 12.8 % (11.6-14.6); RBC Distribution Width SD 39.1 fl (35.1-43.9); Red Blood Count 4.90 M/mm3 (4.2-5.4); White Blood Count 8.9 K/mm3 (4.4-11.0)
[2025-03-01 13:01] LABS: AST(SGOT) 25 U/L (<=31); Alanine Aminotransfer ALT/SGPT 33 U/L (<=34); Albumin, Serum 4.7 g/dL (3.5-5.0); Alkaline Phosphatase 66 U/L (35-104); Anion Gap 13 (5-15); BUN 15 mg/dL (4-19); BUN/Creat Ratio 16.7 RATIO (10-20); Calcium,Total 10.2 mg/dL (7.6-11.0); Carbon Dioxide 26.0 mmol/L (21.0-32.0); Chloride 99 mmol/L (98-108); Globulin 2.8 g/dL (2.2-4.2); Glucose 100 mg/dL (70-99); Potassium 3.8 mmol/L (3.3-5.1)
[2025-03-01 20:14] LABS: Xtra Tube EP Lab EXTRA TUBE
== END | disposition home or self-care (01) ==
LOC: PAVLAB 11:36
PROVIDERS: PCP Family Medicine; Referring Provider Internal Medicine Hematology & Oncology; Visit Provider Internal Medicine Hematology & Oncology
DX: C50.911 Malignant neoplasm of unspecified site of right female breast (principal); C77.9 Secondary and unspecified malignant neoplasm of lymph node, unspecified; Z17.0 Estrogen receptor positive status [ER+]
CPT/HCPCS: 36415; 80053; 85025